=== PATIENT | female | born 1945 | race Caucasian/White ===

== ENCOUNTER 2016-06-29 11:23 | Inpatient (IN) | payer OTHER, MEDICARE ==
[~2016-06-29] VITALS: Ht 154.9 cm; Wt 78.5 kg
[2016-06-29] VITALS (9 sets, daily range): BP systolic 114–157; BP diastolic 77–89; PULSE 72–124; RESP 18–20; TEMP 98–99.2; O2SAT 89–94
[~2016-06-29 11:23] MED LIST: DULARA
[2016-06-29] MEDS ORDERED: PRED5TAB PO (11:45)
[2016-06-29] MEDS ORDERED: SPIRCAP INH (11:45)
[2016-06-29] MEDS ORDERED: SODIUM CHLORIDE 0.9% FLUSH 5 ML FLUSH IVF PRN (11:45)
[2016-06-29] MEDS ORDERED: VITA500T49 PO (11:45)
[2016-06-29] MEDS ORDERED: RESP: LIDOCAINE HCL 4% PF 5 ML NEB NEB ONE (11:45)
[2016-06-29] MEDS ORDERED: SALM50I INH (11:45)
[2016-06-29] MEDS ORDERED: methylPREDNISolone SOD SUCC 125 MG/2 ML VIAL IVP ONE (11:45)
[2016-06-29] MEDS ORDERED: VITA100064 PO (11:45)
[2016-06-29] MEDS ORDERED: LEVA250T PO (11:45)
[2016-06-29] MEDS ORDERED: VENTAER INH (11:45)
[2016-06-29] MEDS ORDERED: CALCCHW3 CHEW (11:45)
--- NOTE | 2016-06-29 11:49 | PD ---
HPI Chief Complaint: Respiratory Symptoms Time Seen by Provider: 11:36 Travel History International Travel<30 days: No Contact w/Intl Traveler<30days: No Traveled to known affect area: No History of Present Illness HPI The patient is a 70-year-old female who presents to the emergency department for shortness of breath. The patient notes a 5-6 day history of cough and congestion symptoms and of moved down to her lungs. The patient was evaluated by the physician pathology assistant at her primary physician's office, Dr. Parker, earlier this week. The patient was placed on Levaquin 250 mg twice a day and prednisone 5 mg daily. However, the patient's symptoms have continued to progress. The patient does have a history of COPD, last cigarette was 3 days ago. The patient denies any chest pain, nausea, vomiting, diarrhea, or abdominal pain. The patient does not currently have a dental therapist. The patient denies any known history congestive heart failure, pulmonary embolism, or DVT. The patient's symptoms are moderate, progressive over the last several days, and there are no current alleviating factors. The patient is not on home oxygen. PFSH Past Medical History Arthritis: Yes (OA) Asthma: Yes Anxiety: Yes Depression: No Cancer: No Cardiovascular Problems: No COPD: Yes Diminished Hearing: No Endocrine: No Genitourinary: No Immune Disorder: No Musculoskeletal: Yes (osteopenia) Neurologic: No Psychiatric: No Reproductive: No Past Surgical History Abdominal Surgery: Yes (HERNIA REPAIR X 3, cholecystectomy) Appendectomy: Yes Cholecystectomy: Yes Gynecologic Surgery: Yes (HYST) Hysterectomy: Yes Joint Replacement: No Oral Surgery: Yes (tonsillectomy) Tonsillectomy: Yes Other Surgery: Yes Social History Alcohol Use: Yes (RARELY) Tobacco Use: Yes (6 CIG/DAY) Substance Use: No Allergies-Medications (Allergen,Severity, Reaction): Coded Allergies: No Known Allergies (Verified , 08/12/15) Reported Meds & Prescriptions Reported Meds & Active Scripts Active Reported Prednisone 5 Mg Tab 5 Mg PO DAILY Levaquin (Levofloxacin) 250 Mg Tab 250 Mg PO BID Vitamin B12 (Cyanocobalamin) 500 Mcg Tab 500 Mcg PO DAILY Vitamin D (Cholecalciferol) 1,000 Unit Tab 1,000 Units PO DAILY Calci-Chew (Calcium Carbonate) 1,250 Mg Chew 1,250 Mg CHEW 1,250 mg calcium carbonate (500 mg elemental calcium) Ventolin Hfa 18 GM Inh (Albuterol Sulfate) 90 Mcg/Act Aer 2 Puff INH Q4-6H PRN Spiriva Handihaler (Tiotropium Inh) 18 Mcg Cap 18 Mcg INH DAILY 1 capsule = 18 mcg Serevent Diskus Inh (Salmeterol Xinafoate) 50 Mcg/Act Aero 50 Mcg INH HS [Dulara] Review of Systems Except as stated in HPI: all other systems reviewed are Neg General / Constitutional: No: Fever Cardiovascular: No: Chest Pain or Discomfort Respiratory: Positive: Cough, Shortness of Breath, Wheezing Gastrointestinal: No: Nausea, Vomiting, Diarrhea, Abdominal Pain Musculoskeletal: No: Myalgias Physical Exam Narrative GENERAL: Awake, alert, pleasant 70-year-old female who appears her stated age and is in mild respiratory distress. SKIN: Warm and dry. HEAD: Atraumatic. Normocephalic. EYES: No injection or drainage. ENT: No nasal bleeding or discharge. Mucous membranes pink and moist. NECK: Trachea midline. No JVD. CARDIOVASCULAR: Regular, tachycardic with a heart rate of 105. RESPIRATORY: Mild tachypnea with a respiratory rate of 22. Diminished breath sounds throughout with prolonged expiratory phase and tight wheeze. GASTROINTESTINAL: Abdomen soft, non-tender, nondistended. No rebound tenderness. MUSCULOSKELETAL: No obvious deformities. No clubbing. No cyanosis. No edema. Calves are soft bilaterally. NEUROLOGICAL: Awake and alert. No obvious cranial nerve deficits. Motor grossly within normal limits. Normal speech. PSYCHIATRIC: Appropriate mood and affect; insight and judgment normal. Data Data Last Documented VS Vital Signs Date Time Temp Pulse Resp B/P Pulse Ox O2 Delivery O2 Flow Rate FiO2 06/29/16 12:05 94 Nasal Cannula 2.00 06/29/16 11:49 20 06/29/16 11:46 99.2 72 152/81 Orders Complete Blood Count With Diff (06/29/16 11:44) Comprehensive Metabolic Panel (06/29/16 11:44) B-Type Natriuretic Peptide (06/29/16 11:44) Magnesium (Mg) (06/29/16 11:44) Ckmb (Isoenzyme) Profile (06/29/16 11:44) Troponin I (06/29/16 11:44) Iv Access Insert/Monitor (06/29/16 11:44) Electrocardiogram (06/29/16 11:44) Ecg Monitoring (06/29/16 11:44) Oximetry (06/29/16 11:44) Oxygen Administration (06/29/16 11:44) Chest, Single Ap (06/29/16 11:44) Sodium Chloride 0.9% Flush (Ns Flush) (06/29/16 11:45) Methylprednisolone So Succ Inj (Solumedr (06/29/16 11:45) Albuterol-Ipratropium Neb (Duoneb Neb) (06/29/16 11:45) Lidocaine Pf 4% Neb (Lidocaine Pf 4% Neb (06/29/16 11:45) Labs Laboratory Tests Test 06/29/16 12:05 White Blood Count 4.4 TH/MM3 Red Blood Count 4.71 MIL/MM3 Hemoglobin 13.9 GM/DL Hematocrit 40.6 % Mean Corpuscular Volume 86.3 FL Mean Corpuscular Hemoglobin 29.5 PG Mean Corpuscular Hemoglobin 34.2 % Concent Red Cell Distribution Width 12.8 % Platelet Count 259 TH/MM3 Mean Platelet Volume 7.2 FL Neutrophils (%) (Auto) 78.8 % Lymphocytes (%) (Auto) 14.8 % Monocytes (%) (Auto) 3.3 % Eosinophils (%) (Auto) 2.2 % Basophils (%) (Auto) 0.9 % Neutrophils # (Auto) 3.5 TH/MM3 Lymphocytes # (Auto) 0.7 TH/MM3 Monocytes # (Auto) 0.1 TH/MM3 Eosinophils # (Auto) 0.1 TH/MM3 Basophils # (Auto) 0.0 TH/MM3 CBC Comment DIFF FINAL Differential Comment Sodium Level 143 MEQ/L Potassium Level 4.3 MEQ/L Chloride Level 109 MEQ/L Carbon Dioxide Level 22.9 MEQ/L Anion Gap 11 MEQ/L Blood Urea Nitrogen 10 MG/DL Creatinine 0.82 MG/DL Estimat Glomerular Filtration 69 ML/MIN Rate Random Glucose 112 MG/DL Calcium Level 9.1 MG/DL Magnesium Level 2.1 MG/DL Total Bilirubin 0.6 MG/DL Aspartate Amino Transf 12 U/L (AST/SGOT) Alanine Aminotransferase 18 U/L (ALT/SGPT) Alkaline Phosphatase 56 U/L Total Creatine Kinase 57 U/L Troponin I LESS THAN 0.02 NG/ML B-Type Natriuretic Peptide 31 PG/ML Total Protein 7.5 GM/DL Albumin 3.8 GM/DL MDM Medical Decision Making Medical Screen Exam Complete: Yes Emergency Medical Condition: Yes Medical Record Reviewed: Yes Interpretation(s) EKG reveals sinus tachycardia with a heart rate of 104. Chest x-ray reveals normal examination. Laboratory Tests Test 06/29/16 12:05 White Blood Count 4.4 TH/MM3 Red Blood Count 4.71 MIL/MM3 Hemoglobin 13.9 GM/DL Hematocrit 40.6 % Mean Corpuscular Volume 86.3 FL Mean Corpuscular Hemoglobin 29.5 PG Mean Corpuscular Hemoglobin 34.2 % Concent Red Cell Distribution Width 12.8 % Platelet Count 259 TH/MM3 Mean Platelet Volume 7.2 FL Neutrophils (%) (Auto) 78.8 % Lymphocytes (%) (Auto) 14.8 % Monocytes (%) (Auto) 3.3 % Eosinophils (%) (Auto) 2.2 % Basophils (%) (Auto) 0.9 % Neutrophils # (Auto) 3.5 TH/MM3 Lymphocytes # (Auto) 0.7 TH/MM3 Monocytes # (Auto) 0.1 TH/MM3 Eosinophils # (Auto) 0.1 TH/MM3 Basophils # (Auto) 0.0 TH/MM3 CBC Comment DIFF FINAL Differential Comment Sodium Level 143 MEQ/L Potassium Level 4.3 MEQ/L Chloride Level 109 MEQ/L Carbon Dioxide Level 22.9 MEQ/L Anion Gap 11 MEQ/L Blood Urea Nitrogen 10 MG/DL Creatinine 0.82 MG/DL Estimat Glomerular Filtration 69 ML/MIN Rate Random Glucose 112 MG/DL Calcium Level 9.1 MG/DL Magnesium Level 2.1 MG/DL Total Bilirubin 0.6 MG/DL Aspartate Amino Transf 12 U/L (AST/SGOT) Alanine Aminotransferase 18 U/L (ALT/SGPT) Alkaline Phosphatase 56 U/L Total Creatine Kinase 57 U/L Troponin I LESS THAN 0.02 NG/ML B-Type Natriuretic Peptide 31 PG/ML Total Protein 7.5 GM/DL Albumin 3.8 GM/DL Differential Diagnosis Differential diagnosis includes COPD exacerbation, bronchitis, pneumonia, pleural effusion, pulmonary embolism, acute coronary syndrome, sepsis. Narrative Course IV was established, labs are drawn and sent, and the patient was placed on cardiac telemetry monitoring and continuous pulse oximetry monitoring. EKG was ordered and interpreted. Chest x-ray was ordered. The patient was administered Solu-Medrol 125 mg intravenously, duo nebs 3 with respiratory lidocaine, and the patient was monitored in the emergency department. Chest x- ray was negative. The patient was administered DuoNeb's and monitored in the emergency department. The patient's lung sounds did improve, however, she still had coarse wheezing throughout. The patient's heart rate maintained a rate approximately 100-115, O2 sat was 92% on 3 L. The patient is not on home oxygen. The patient will require observation/admission to the hospital for COPD exacerbation and hypoxia. The patient will need IV steroids, duo nebs, and pulmonary toilet. The patient has failed outpatient therapy as she was RE placed on prednisone and Levaquin. The patient will be admitted to the hospital. Physician Communication Physician Communication The patient has [employer], her primary [facility] Dr[facility] Parker, [facility] as she has failed outpatient therapy and is hypoxic. Diagnosis Primary Impression: COPD exacerbation Additional Impression: Hypoxia Admitting Information Admitting Physician Requests: Admit Condition: Stable Jean Pierre Brandt MD Jun 29, 2016 11:49
--- NOTE | 2016-06-29 12:01 | RADHPO ---
EXAM DATE/TIME: 06/29/2016 11:52 [place] COMPARISON: No previous studies available for comparison. INDICATIONS : Short of breath, cough, fever MEDICAL HISTORY : Chronic obstructive pulmonary disease. SURGICAL HISTORY : None. ENCOUNTER: Initial ACUITY: 1 week PAIN SCORE: 0/10 LOCATION: Bilateral chest FINDINGS: A single view of the chest demonstrates the lungs to be symmetrically aerated without evidence of mas s, infiltrate or effusion. The cardiomediastinal contours are unremarkable. Osseous structures are intact. CONCLUSION: Normal examination. Oliver Blackman MD on June 29, 2016 at 12:00 Board Certified Radiologist. This report was verified electronically.
[2016-06-29] MEDS: RESP: ALBUTEROL 2.5 MG/IPRATROPIUM 0.5 MG NEB (SCH) INH ×3 (12:04→12:22)
[2016-06-29 12:18] LABS: AUTOMATED NEUTROPHIL # 3.5 TH/MM3 (1.8-7.7); BASOPHIL % 0.9 % (0.0-2.0); EOSINOPHIL # 0.1 TH/MM3 (0-0.4); EOSINOPHIL % 2.2 % (0.0-4.0); HEMATOCRIT 40.6 % (35.0-46.0); LYMPH % 14.8 % (9.0-44.0); LYMPHOCYTE # 0.7 TH/MM3 (1.0-4.8); MEAN CELL VOLUME 86.3 FL (80.0-100.0); MEAN CORPUSCULAR HEMOGLOBIN 29.5 PG (27.0-34.0); MEAN CORPUSCULAR HGB CONC 34.2 % (32.0-36.0); MONO % 3.3 % (0.0-8.0); NEUT % 78.8 % (16.0-70.0); PLATELET COUNT 259 TH/MM3 (150-450); RED BLOOD COUNT 4.71 MIL/MM3 (4.00-5.30); RED CELL DISTRIBUTION WIDTH 12.8 % (11.6-17.2); WHITE BLOOD COUNT 4.4 TH/MM3 (4.0-11.0)
[2016-06-29 12:19] LABS: HEMO FLAGS DIFF FINAL
[2016-06-29 12:26] LABS: CHLORIDE 109 MEQ/L (98-107); POTASSIUM 4.3 MEQ/L (3.5-5.1); SODIUM (NA) 143 MEQ/L (136-145)
[2016-06-29 12:30] LABS: ANION GAP 11 MEQ/L (5-15); BICARBONATE 22.9 MEQ/L (21.0-32.0); BLOOD UREA NITROGEN 10 MG/DL (7-18); MAGNESIUM 2.1 MG/DL (1.5-2.5)
[2016-06-29 12:33] LABS: ALT (GPT) 18 U/L (10-53); AST (GOT) 12 U/L (15-37); GLOMERULAR FILTRATION RATE 69 ML/MIN (>89)
[2016-06-29 12:34] LABS: TOTAL BILIRUBIN ADULT 0.6 MG/DL (0.2-1.0)
[2016-06-29 12:36] LABS: ALKALINE PHOSPHATASE 56 U/L (45-117)
[2016-06-29 12:43] LABS: CREATINE KINASE 57 U/L (26-192)
--- NOTE | 2016-06-29 13:40 | HHI.HP ---
cc: zaheer [facility] Service [facility] Primary Care Physician Kirk Parker MD Admission Diagnosis COPD exacerbation, hypoxia, failed outpatient therapy Diagnoses: Chief Complaint: Short of breath Travel History International Travel<30 Days: No Contact w/Intl Traveler <30 Da: No Traveled to Known Affected Are: No History of Present Illness Patient is a 70-year-old female with a known history of bronchitis area 6 days ago she had increased cough and congestion and respiratory distress. She saw her primary doctor and was given Levaquin and prednisone for several days without much improvement. She came to the hospital today. She was hypoxemic and tachycardic. The patient has not had any fevers but admits her appetite for tobacco has gone down because she couldn't take good breaths. She does not use home oxygen. Patient was given bronchodilators and steroids and noted that there has been some improvement in her respiratory status. For these reasons the patient has been admitted to the hospital Review of Systems Constitutional: COMPLAINS OF: Fatigue, DENIES: Diaphoretic episodes, Fever, Weight gain, Weight loss, Chills, Dizziness, Change in appetite, Night Sweats Endocrine: DENIES: Abnorml menstrual pattern, Heat/cold intolerance, Polydipsia , Polyuria, Polyphagia Eyes: DENIES: Blurred vision, Diplopia, Eye inflammation, Eye pain, Vision loss , Photosensitivity, Double Vision Ears, nose, mouth, throat: DENIES: Tinnitus, Hearing loss, Vertigo, Nasal discharge, Oral lesions, Throat pain, Hoarseness, Ear Pain, Running Nose, Epistaxis, Sinus Pain, Toothache, Odynophagia Respiratory: COMPLAINS OF: Shortness of breath, DENIES: Apneas, Cough, Snoring , Wheezing, Hemoptysis, Sputum production Cardiovascular: COMPLAINS OF: Dyspnea on Exertion, DENIES: Chest pain, Palpitations, Syncope, PND, Lower Extremity Edema, Orthopnea, Claudication Gastrointestinal: DENIES: Abdominal pain, Black stools, Bloody stools, Constipation, Diarrhea, Nausea, Vomiting, Difficulty Swallowing, Anorexia Genitourinary: DENIES: Abnormal vaginal bleeding, Dysmenorrhea, Dyspareunia, Sexual dysfunction, Urinary frequency, Urinary incontinence, Urgency, Hematuria , Dysuria, Nocturia, Vaginal discharge Musculoskeletal: DENIES: Joint pain, Muscle aches, Stiffness, Joint Swelling, Back pain, Neck pain Integumentary: DENIES: Abnormal pigmentation, Pruritus, Rash, Nail changes, Breast masses, Breast skin changes, Nipple discharge Hematologic/lymphatic: DENIES: Bruising, Lymphadenopathy Immunologic/allergic: DENIES: Eczema, Urticaria Neurologic: DENIES: Abnormal gait, Headache, Localized weakness, Paresthesias, Seizures, Speech Problems, Tremor, Poor Balance Psychiatric: DENIES: Anxiety, Confusion, Mood changes, Depression, Hallucinations, Agitation, Suicidal Ideation, Homicidal Ideation, Delusions Past Family Social History Past Medical History COPD/bronchitis Past Surgical History Hysterectomy Hernia repair Cholecystectomy Appendectomy Tonsillectomy Reported Medications Reviewed in the medical record, recent prednisone and Levaquin per outpatient primary Allergies: Coded Allergies: No Known Allergies (Verified , 08/12/15) Active Ordered Medications Reviewed in the medical record Family History Mother had COPD and was on oxygen after smoking for several decades Social History Tobacco half a pack a day, occasional alcohol, lives independently Physical Exam Vital Signs Vital Signs Date Time Temp Pulse Resp B/P Pulse Ox O2 Delivery O2 Flow Rate FiO2 06/29/16 13:02 114 20 139/77 93 Nasal Cannula 3 06/29/16 12:05 94 Nasal Cannula 2.00 06/29/16 11:49 94 Nasal Cannula 3 06/29/16 11:49 20 94 Nasal Cannula 3 06/29/16 11:49 20 94 Nasal Cannula 3 06/29/16 11:46 99.2 72 20 152/81 89 Physical Exam GENERAL: This is a well-nourished, well-developed patient, in no apparent distress. SKIN: No rashes, ecchymoses or lesions. Cool and dry. HEAD: Atraumatic. Normocephalic. No temporal or scalp tenderness. EYES: Pupils equal round and reactive. Extraocular motions intact. No scleral icterus. No injection or drainage. ENT: Nose without bleeding, purulent drainage or septal hematoma. Throat without erythema, tonsillar hypertrophy or exudate. Uvula midline. Airway patent. NECK: Trachea midline. No JVD or lymphadenopathy. Supple, nontender, no meningeal signs. CARDIOVASCULAR: Sinus tachycardia without murmurs, gallops, or rubs. RESPIRATORY: Decreased air flow, scattered wheezes no appreciable rhonchi GASTROINTESTINAL: Abdomen soft, non-tender, nondistended. No hepato-splenomegaly , or palpable masses. No guarding. MUSCULOSKELETAL: Extremities without clubbing, cyanosis, or edema. No joint tenderness, effusion, or edema noted. No calf tenderness. Negative Homans sign bilaterally. NEUROLOGICAL: Awake and alert. Cranial nerves II through XII intact. Motor and sensory grossly within normal limits. Five out of 5 muscle strength in all muscle groups. Normal speech. Laboratory Laboratory Tests Test 06/29/16 12:05 White Blood Count 4.4 Red Blood Count 4.71 Hemoglobin 13.9 Hematocrit 40.6 Mean Corpuscular Volume 86.3 Mean Corpuscular Hemoglobin 29.5 Mean Corpuscular Hemoglobin 34.2 Concent Red Cell Distribution Width 12.8 Platelet Count 259 Mean Platelet Volume 7.2 Neutrophils (%) (Auto) 78.8 Lymphocytes (%) (Auto) 14.8 Monocytes (%) (Auto) 3.3 Eosinophils (%) (Auto) 2.2 Basophils (%) (Auto) 0.9 Neutrophils # (Auto) 3.5 Lymphocytes # (Auto) 0.7 Monocytes # (Auto) 0.1 Eosinophils # (Auto) 0.1 Basophils # (Auto) 0.0 CBC Comment DIFF FINAL Differential Comment Sodium Level 143 Potassium Level 4.3 Chloride Level 109 Carbon Dioxide Level 22.9 Anion Gap 11 Blood Urea Nitrogen 10 Creatinine 0.82 Estimat Glomerular Filtration 69 Rate Random Glucose 112 Calcium Level 9.1 Magnesium Level 2.1 Total Bilirubin 0.6 Aspartate Amino Transf 12 (AST/SGOT) Alanine Aminotransferase 18 (ALT/SGPT) Alkaline Phosphatase 56 Total Creatine Kinase 57 Troponin I LESS THAN 0.02 B-Type Natriuretic Peptide 31 Total Protein 7.5 Albumin 3.8 Result Diagram: 06/29/16 1205 06/29/16 1205 Assessment and Plan Problem List: (1) COPD exacerbation ICD Code: J44.1 Status: Acute Plan: we'll continue with bronchodilators, antibiotics, IV steroids. Cont spiriva, Patient education to be provided. We'll check oxygenation periodically Chest x-ray reviewed by me does show increased AP diameter without any evidence of acute cardiopulmonary disease EKG was done and interpreted by me and is sinus tachycardia Assessment and Plan Plan of care to be determined by Hospital course Code Status Full code Discussed Condition With Patient, NAABELA IsaiErmias Rikki, daughter Physician Certification 2 Midnight Certification Type: Admission for Inpatient Services Order for Inpatient Services The services are ordered in accordance with Medicare regulations or non- Medicare payer requirements, as applicable. In the case of services not specified as inpatient-only, they are appropriately provided as inpatient services in accordance with the 2-midnight benchmark. Estimated LOS (days): 3 3 days is the estimated time the patient will need to remain in the hospital, assuming treatment plan goals are met and no additional complications. Post-Hospital Plan: Alicia Hernandez MD Jun 29, 2016 13:40
[2016-06-29] MEDS ORDERED: LEVOFLOXACIN 750 MG PREMIX INJ 150 ML IV SCH (15:00)
[2016-06-29] MEDS: RESP: IPRATROPIUM 0.5 MG/2.5 ML NEB INH SCH ×2 (15:31→20:21)
[2016-06-29] MEDS: methylPREDNISolone SOD SUCC 40 MG/1 ML VIAL IV PUSH SCH (21:43)
[2016-06-29] MEDS: SODIUM CHLORIDE 0.9% FLUSH 5 ML FLUSH IVF SCH (21:43)
[2016-06-30] VITALS (7 sets, daily range): BP systolic 109–136; BP diastolic 77–82; PULSE 72–117; RESP 18–20; TEMP 97.3–98.2; O2SAT 91–94
[2016-06-30] MEDS: methylPREDNISolone SOD SUCC 40 MG/1 ML VIAL IV PUSH SCH ×3 (03:43→21:28)
[2016-06-30] MEDS: RESP: ALBUTEROL 2.5 MG/3 ML NEB (PRN) INH (05:44)
[2016-06-30] MEDS: RESP: IPRATROPIUM 0.5 MG/2.5 ML NEB INH SCH ×4 (08:15→20:07)
[2016-06-30] MEDS: TIOTROPIUM BROMIDE 18 MCG INH INH SCH (09:34)
[2016-06-30] MEDS: SODIUM CHLORIDE 0.9% FLUSH 5 ML FLUSH IVF SCH ×2 (09:35→21:28)
--- NOTE | 2016-06-30 10:53 | HHI.PR ---
Subjective Remarks Patient seen in follow-up for tachycardia and for COPD exacerbation. Patient doing a little bit better. Tachycardia somewhat improved. She is somewhat short of breath at rest. No new events overnight. Discussed with [facility] team Objective Vitals Vital Signs Date Time Temp Pulse Resp B/P Pulse Ox O2 Delivery O2 Flow Rate FiO2 06/30/16 08:15 92 Nasal Cannula 2.00 06/30/16 08:00 98.2 112 20 117/79 91 06/30/16 04:00 97.6 72 20 136/79 94 06/30/16 00:00 97.8 117 20 109/82 93 06/29/16 20:21 93 Nasal Cannula 2.00 06/29/16 20:00 116 06/29/16 20:00 98.0 123 18 114/86 91 06/29/16 18:42 118 06/29/16 17:05 124 20 157/89 94 Nasal Cannula 3 06/29/16 14:01 120 20 146/87 93 Nasal Cannula 3 06/29/16 13:02 114 20 139/77 93 Nasal Cannula 3 06/29/16 12:05 94 Nasal Cannula 2.00 06/29/16 11:49 94 Nasal Cannula 3 06/29/16 11:49 20 94 Nasal Cannula 3 06/29/16 11:49 20 94 Nasal Cannula 3 06/29/16 11:46 99.2 72 20 152/81 89 I/O 06/29/16 06/29/16 06/29/16 06/30/16 06/30/16 06/30/16 07:00 15:00 23:00 07:00 15:00 23:00 Intake Total 500 ml 150 ml 420 ml Balance 500 ml 150 ml 420 ml Intake Oral 500 ml 420 ml IV Total 150 ml # Voids 1 2 # Bowel Movements 0 Result Diagram: 06/29/16 1205 06/29/16 1205 Imaging Last Impressions Chest X-Ray 06/29/16 1144 Signed Impressions: Service Date/Time: Wednesday, June 29, 2016 11:52 - CONCLUSION: Normal examination. Oliver Blackman MD Objective Remarks GENERAL: This is a well-nourished, well-developed patient, in no apparent distress. CARDIOVASCULAR: Regular rate and rhythm without murmurs, gallops, or rubs. RESPIRATORY: Decreased air flow with scattered fine wheezes GASTROINTESTINAL: Abdomen soft, non-tender, nondistended. Normal active bowel sounds MUSCULOSKELETAL: Extremities without clubbing, cyanosis, or edema. NEURO: Alert & Oriented x4 to person, place, time, situation. Moves all ext x4 A/P Problem List: (1) COPD exacerbation ICD Code: J44.1 Status: Acute Plan: we'll continue with bronchodilators, antibiotics, IV steroids. Cont spiriva, Patient education to be provided. We'll check oxygenation periodically Patient admonished to discontinue tobacco Discharge Planning Home when stable Alicia Mitchell MD Jun 30, 2016 10:53
[2016-06-30] MEDS: ENOXAPARIN SODIUM 40 MG/0.4 ML SYRINGE SQ SCH (12:03)
[2016-06-30] MEDS ORDERED: ACETAMINOPHEN 325 MG TAB PO PRN (19:00)
--- NOTE | 2016-06-30 19:43 | EKG ---
Date Performed: 06/29/2016 Time Performed: 11:51:04 PTAGE: 70 years EKG: Sinus tachycardia Normal ECG except for rate PREVIOUS TRACING : 09/08/2011 18.09 DOCTOR: Simon Jamil Interpretating Date/Time 06/30/2016 19:37:11
[2016-06-30] MEDS ORDERED: SODIUM CHLORIDE 0.65% NASAL DRP/SPRY 30 ML BTL PRN (21:00)
[2016-06-30] MEDS ORDERED: guaiFENesin SOLUTION 200 MG/10 ML CUP PO ONE (21:45)
[2016-07-01] VITALS (7 sets, daily range): BP systolic 111–143; BP diastolic 73–91; PULSE 92–108; RESP 16–24; TEMP 95.9–97.6; O2SAT 91–96
[2016-07-01] MEDS: methylPREDNISolone SOD SUCC 40 MG/1 ML VIAL IV PUSH SCH ×3 (04:14→21:53)
[2016-07-01] MEDS: RESP: ALBUTEROL 2.5 MG/3 ML NEB (PRN) INH ×2 (04:28→17:06)
[2016-07-01] MEDS: RESP: IPRATROPIUM 0.5 MG/2.5 ML NEB INH SCH ×4 (07:25→19:09)
[2016-07-01] MEDS: TIOTROPIUM BROMIDE 18 MCG INH INH SCH (08:34)
[2016-07-01] MEDS: SODIUM CHLORIDE 0.9% FLUSH 5 ML FLUSH IVF SCH ×2 (08:34→21:55)
--- NOTE | 2016-07-01 11:12 | HHI.PR ---
Subjective Remarks Patient seen and evaluated today in follow-up for COPD. No new complaints today. Restaurant status is improved. Wheezes are better Objective Vitals Vital Signs Date Time Temp Pulse Resp B/P Pulse Ox O2 Delivery O2 Flow Rate FiO2 07/01/16 08:32 95.9 92 18 111/75 96 07/01/16 07:26 95 Nasal Cannula 2.00 07/01/16 00:00 97.0 95 18 132/77 93 06/30/16 20:07 93 Nasal Cannula 2.00 06/30/16 20:00 97.7 101 18 116/80 94 06/30/16 12:00 97.3 103 20 113/77 92 I/O 06/30/16 06/30/16 06/30/16 07/01/16 07/01/16 07/01/16 07:00 15:00 23:00 07:00 15:00 23:00 Intake Total 420 ml 640 ml Balance 420 ml 640 ml Intake Oral 420 ml 640 ml # Voids 2 2 1 # Bowel Movements 0 0 Result Diagram: 06/29/16 1205 06/29/16 1205 Objective Remarks GENERAL: This is a well-nourished, well-developed patient, in no apparent distress. CARDIOVASCULAR: Regular rate and rhythm without murmurs, gallops, or rubs. RESPIRATORY: Improved airflow, wheezes or clearing with deep inspiration GASTROINTESTINAL: Abdomen soft, non-tender, nondistended. Normal active bowel sounds MUSCULOSKELETAL: Extremities without clubbing, cyanosis, or edema. NEURO: Alert & Oriented x4 to person, place, time, situation. Moves all ext x4 A/P Problem List: (1) COPD exacerbation ICD Code: J44.1 Status: Acute Plan: we'll continue with bronchodilators, antibiotics, IV steroids. Cont spiriva, Patient education provided. We'll check oxygenation periodically Patient admonished to discontinue tobacco Discharge Planning Home when stable Alicia Mitchell MD Jul 01, 2016 11:12
[2016-07-01] MEDS: ENOXAPARIN SODIUM 40 MG/0.4 ML SYRINGE SQ SCH (12:07)
[2016-07-01] MEDS: LEVOFLOXACIN 750 MG PREMIX INJ 150 ML IV SCH (16:40)
[2016-07-02] VITALS (9 sets, daily range): BP systolic 120–154; BP diastolic 71–99; PULSE 85–102; RESP 16–20; TEMP 96.8–97.6; O2SAT 92–98
[2016-07-02] MEDS: RESP: ALBUTEROL 2.5 MG/3 ML NEB (PRN) INH (04:38)
[2016-07-02] MEDS: methylPREDNISolone SOD SUCC 40 MG/1 ML VIAL IV PUSH SCH ×3 (05:06→17:59)
[2016-07-02] MEDS: RESP: IPRATROPIUM 0.5 MG/2.5 ML NEB INH SCH ×2 (07:17→10:56)
[2016-07-02] MEDS: TIOTROPIUM BROMIDE 18 MCG INH INH SCH (09:03)
[2016-07-02] MEDS: SODIUM CHLORIDE 0.9% FLUSH 5 ML FLUSH IVF SCH ×2 (09:03→20:22)
[2016-07-02] MEDS: ENOXAPARIN SODIUM 40 MG/0.4 ML SYRINGE SQ SCH (09:03)
--- NOTE | 2016-07-02 14:09 | HHI.PR ---
Subjective Remarks Patient seen and examined today with Dr. Pascual. Patient states that she is actually worse today. Her chest feels tighter than yesterday. Today's first day that she has been actually able to expectorate any phlegm. Objective Vitals Vital Signs Date Time Temp Pulse Resp B/P Pulse Ox O2 Delivery O2 Flow Rate FiO2 07/02/16 10:48 3.00 07/02/16 09:05 97.0 98 18 120/71 98 07/02/16 07:19 93 Nasal Cannula 2.00 07/02/16 00:00 96.8 85 20 122/86 95 07/01/16 20:00 96.6 108 24 112/87 95 07/01/16 19:10 94 Nasal Cannula 2.00 07/01/16 16:30 97.6 101 16 143/91 91 I/O 07/01/16 07/01/16 07/01/16 07/02/16 07/02/16 07/02/16 07:00 15:00 23:00 07:00 15:00 23:00 Intake Total 960 ml 480 ml Balance 960 ml 480 ml Intake Oral 960 ml 480 ml # Voids 1 3 1 # Bowel Movements 0 0 Result Diagram: 06/29/16 1205 06/29/16 1205 Objective Remarks GENERAL: Well-developed, well-nourished, in no acute distress. alert and orientated HEENT: Head is normocephalic without any lesions or masses noted. Facial features are symmetric. Eyes: Extraocular muscles are intact. Conjunctivae were clear. NECK: Supple without any masses. Trachea midline no deviation. No JVD, CARDIAC: Regular rhythm, regular rate. S1/S2 are heard. No murmurs gallops or rubs. LUNGS: Patient moving minimal air, expiratory wheeze noted bilaterally. no rhonchi or rales. No use of accessory muscles on inspiration or expiration. ABDOMEN: Soft, nontender. Nondistended. Bowel sounds heard in all 4 quadrants. No organomegaly or masses. Negative rebound, negative guarding EXTREMITIES: No edema, pulses are equal bilaterally. No cyanosis or clubbing NEUROLOGY: Mood and affect appear appropriate. Cranial nerves II through XII grossly intact. Moving all extremities, speech is clear Urinary Catheter: No Vascular Central Line Catheter: No A/P Assessment and Plan Chronic obstructive pulmonary disease exacerbation Continue Levaquin Increase to Solu-Medrol 60 mg every 6 hours Continue duo nebs every 4 hours and every 2 hours as needed Continue O2 supplementation maintain O2 sats greater than 92% Start Robitussin-AC every 4 hours as needed for cough EZPAP with nebulizer treatments Awaiting sputum culture DVT prevention Subcutaneous Lovenox Written by Hiren Ca PA-C, acting as scribe for Dr. Pascual on 07/02/16 at 1510. The documentation accurately reflects the work and decisions performed face-to- face by Dr. Pascual on 07/02/16 at 1510. Hiren Ca Jul 02, 2016 14:09
[2016-07-02] MEDS: DOCUSATE SODIUM 50 MG/SENNA 8.6 MG TAB PO SCH ×2 (14:28→20:21)
[2016-07-02] MEDS: POLYETHYLENE GLYCOL 17 GM PKG PO PRN (14:29)
[2016-07-02] MEDS: RESP: ALBUTEROL 2.5 MG/IPRATROPIUM 0.5 MG NEB (PRN) NEB (14:39)
[2016-07-02] MEDS: RESP: ALBUTEROL 2.5 MG/IPRATROPIUM 0.5 MG NEB (SCH) NEB ×2 (17:10→20:23)
[2016-07-02] MEDS: guaiFENesin/CODEINE SYRUP 200 MG/20 MG/10 ML CUP PO PRN (20:22)
[2016-07-03] VITALS (7 sets, daily range): BP systolic 129–135; BP diastolic 81–87; PULSE 85–107; RESP 17–18; TEMP 97–98.1; O2SAT 94–96
[2016-07-03] MEDS: methylPREDNISolone SOD SUCC 40 MG/1 ML VIAL IV PUSH SCH ×5 (00:17→23:43)
[2016-07-03] MEDS: RESP: ALBUTEROL 2.5 MG/IPRATROPIUM 0.5 MG NEB (PRN) NEB ×2 (05:26→17:51)
[2016-07-03] MEDS: RESP: ALBUTEROL 2.5 MG/IPRATROPIUM 0.5 MG NEB (SCH) NEB ×4 (07:47→21:53)
[2016-07-03] MEDS: TIOTROPIUM BROMIDE 18 MCG INH INH SCH (08:41)
[2016-07-03] MEDS: DOCUSATE SODIUM 50 MG/SENNA 8.6 MG TAB PO SCH ×2 (08:43→21:01)
[2016-07-03] MEDS: SODIUM CHLORIDE 0.9% FLUSH 5 ML FLUSH IVF SCH ×2 (08:43→21:03)
[2016-07-03] MEDS: ENOXAPARIN SODIUM 40 MG/0.4 ML SYRINGE SQ SCH (08:43)
[2016-07-03] MEDS ORDERED: OXYGENTANK NAS.CANULA (12:57)
--- NOTE | 2016-07-03 12:59 | HHI.PR ---
Subjective Remarks Patient seen and examined today with Dr. Pascual. Patient states that she feels that she is turning the corner. She states her breathing is better. She is able take full breaths at this time. Objective Vitals Vital Signs Date Time Temp Pulse Resp B/P Pulse Ox O2 Delivery O2 Flow Rate FiO2 07/03/16 12:00 97.2 100 18 129/81 94 07/03/16 08:00 97.0 85 17 134/87 96 07/03/16 07:49 96 Nasal Cannula 3.00 07/03/16 00:00 97.7 97 18 129/83 96 07/02/16 20:23 94 Nasal Cannula 3.00 07/02/16 20:00 97.2 102 18 141/99 94 07/02/16 17:30 96.8 92 16 154/98 96 07/02/16 17:11 95 Nasal Cannula 3.00 07/02/16 14:41 94 Nasal Cannula 3.00 07/02/16 13:00 97.6 102 20 146/95 92 I/O 07/02/16 07/02/16 07/02/16 07/03/16 07/03/16 07/03/16 07:00 15:00 23:00 07:00 15:00 23:00 Intake Total 480 ml 100 ml 280 ml Balance 480 ml 100 ml 280 ml Intake Oral 480 ml 280 ml IV Total 100 ml # Voids 1 5 # Bowel Movements 0 Result Diagram: 06/29/16 1205 06/29/16 1205 Objective Remarks GENERAL: Well-developed, well-nourished, in no acute distress. alert and orientated HEENT: Head is normocephalic without any lesions or masses noted. Facial features are symmetric. Eyes: Extraocular muscles are intact. Conjunctivae were clear. NECK: Supple without any masses. Trachea midline no deviation. No JVD, CARDIAC: Regular rhythm, regular rate. S1/S2 are heard. No murmurs gallops or rubs. LUNGS: Patient with improved air movement. Able to eat deeper breaths without coughing., expiratory wheeze noted bilaterally. no rhonchi or rales. No use of accessory muscles on inspiration or expiration. ABDOMEN: Soft, nontender. Nondistended. Bowel sounds heard in all 4 quadrants. No organomegaly or masses. Negative rebound, negative guarding EXTREMITIES: No edema, pulses are equal bilaterally. No cyanosis or clubbing NEUROLOGY: Mood and affect appear appropriate. Cranial nerves II through XII grossly intact. Moving all extremities, speech is clear Urinary Catheter: No Vascular Central Line Catheter: No A/P Assessment and Plan Chronic obstructive pulmonary disease exacerbation Continue Levaquin Continue Solu-Medrol 60 mg every 6 hours Continue duo nebs every 4 hours and every 2 hours as needed Continue O2 supplementation maintain O2 sats greater than 92% Continue Robitussin-AC every 4 hours as needed for cough Acapella Sputum culture heavy growth normal respiratory darlin DVT prevention Subcutaneous Lovenox Written by Hiren Ca PA-C, acting as scribe for Dr. Pascual on 07/03/16 at 1750. The documentation accurately reflects the work and decisions performed face-to- face by Dr. Pascual on 07/03/16 at 1750. Hiren Ca Jul 03, 2016 12:59
[2016-07-03] MEDS: LEVOFLOXACIN 750 MG PREMIX INJ 150 ML IV SCH (15:58)
[2016-07-04] VITALS (8 sets, daily range): BP systolic 115–149; BP diastolic 76–98; PULSE 20–109; RESP 18–22; TEMP 96.2–97.6; O2SAT 92–98
[2016-07-04] MEDS: methylPREDNISolone SOD SUCC 40 MG/1 ML VIAL IV PUSH SCH ×3 (05:18→16:17)
[2016-07-04] MEDS: RESP: ALBUTEROL 2.5 MG/IPRATROPIUM 0.5 MG NEB (PRN) NEB (05:22)
[2016-07-04] MEDS: RESP: ALBUTEROL 2.5 MG/IPRATROPIUM 0.5 MG NEB (SCH) NEB ×4 (08:22→19:41)
[2016-07-04] MEDS: DOCUSATE SODIUM 50 MG/SENNA 8.6 MG TAB PO SCH ×2 (08:43→20:16)
[2016-07-04] MEDS: SODIUM CHLORIDE 0.9% FLUSH 5 ML FLUSH IVF SCH ×2 (08:44→20:17)
[2016-07-04] MEDS: TIOTROPIUM BROMIDE 18 MCG INH INH SCH (08:44)
--- NOTE | 2016-07-04 11:58 | HHI.PR ---
Subjective Remarks Patient seen and examined today. Patient states that she gets very winded this morning she started to get shower without her oxygen. Objective Vitals Vital Signs Date Time Temp Pulse Resp B/P Pulse Ox O2 Delivery O2 Flow Rate FiO2 07/04/16 08:22 92 Nasal Cannula 3.00 07/04/16 08:00 97.0 103 22 147/98 93 07/04/16 04:00 97.1 90 18 118/81 96 07/04/16 00:00 96.2 98 18 115/76 98 07/03/16 21:53 94 Nasal Cannula 3.00 07/03/16 20:00 98.1 107 18 135/86 95 07/03/16 16:00 98.0 100 18 131/81 94 07/03/16 12:00 97.2 100 18 129/81 94 I/O 07/03/16 07/03/16 07/03/16 07/04/16 07/04/16 07/04/16 07:00 15:00 23:00 07:00 15:00 23:00 Intake Total 280 ml Balance 280 ml Intake Oral 280 ml # Bowel Movements 1 Objective Remarks GENERAL: Well-developed, well-nourished, in no acute distress. alert and orientated HEENT: Head is normocephalic without any lesions or masses noted. Facial features are symmetric. Eyes: Extraocular muscles are intact. Conjunctivae were clear. NECK: Supple without any masses. Trachea midline no deviation. No JVD, CARDIAC: Regular rhythm, regular rate. S1/S2 are heard. No murmurs gallops or rubs. LUNGS: Patient with improved air movement. Able to eat deeper breaths without coughing., expiratory wheeze noted bilaterally. no rhonchi or rales. No use of accessory muscles on inspiration or expiration. ABDOMEN: Soft, nontender. Nondistended. Bowel sounds heard in all 4 quadrants. No organomegaly or masses. Negative rebound, negative guarding EXTREMITIES: No edema, pulses are equal bilaterally. No cyanosis or clubbing NEUROLOGY: Mood and affect appear appropriate. Cranial nerves II through XII grossly intact. Moving all extremities, speech is clear Urinary Catheter: No Vascular Central Line Catheter: No A/P Assessment and Plan Chronic obstructive pulmonary disease exacerbation Continue Levaquin Continue Solu-Medrol 60 mg every 6 hours Continue duo nebs every 4 hours and every 2 hours as needed Continue O2 supplementation maintain O2 sats greater than 92% Continue Robitussin-AC every 4 hours as needed for cough Continue incentive spirometry and Acapella Sputum culture heavy growth normal respiratory darlin start Mucinex 600 mg twice daily DVT prevention Subcutaneous Lovenox Written by Hiren Ca PA-C, acting as scribe for Dr. Pascual on 07/04/16 at 1150. The documentation accurately reflects the work and decisions performed face-to- face by Dr. Pascual on 07/04/16 at 1150. Hiren Ca Jul 04, 2016 11:58
[2016-07-04] MEDS: ENOXAPARIN SODIUM 40 MG/0.4 ML SYRINGE SQ SCH (12:29)
[2016-07-04] MEDS: guaiFENesin E.R. 600 MG TAB PO SCH ×2 (12:36→20:16)
[2016-07-04] MEDS: ALPRAZolam 0.25 MG TAB PO PRN (16:17)
[2016-07-05] VITALS (8 sets, daily range): BP systolic 121–150; BP diastolic 78–89; PULSE 80–108; RESP 18–24; TEMP 95.9–98.7; O2SAT 92–99
[2016-07-05] MEDS: methylPREDNISolone SOD SUCC 40 MG/1 ML VIAL IV PUSH SCH ×4 (00:42→16:45)
[2016-07-05] MEDS: ALPRAZolam 0.25 MG TAB PO PRN ×2 (00:43→16:47)
[2016-07-05] MEDS: RESP: ALBUTEROL 2.5 MG/IPRATROPIUM 0.5 MG NEB (PRN) NEB (05:57)
[2016-07-05] MEDS: RESP: ALBUTEROL 2.5 MG/IPRATROPIUM 0.5 MG NEB (SCH) NEB ×4 (07:49→21:18)
--- NOTE | 2016-07-05 09:02 | HHI.PR ---
Subjective Remarks Patient seen and examined today with Dr. Pascual. Patient states that she feels improved. When she did her morning bathroom routine, she did with oxygen without any shortness of breath or dyspnea. She is down to 2 L nasal cannula. Objective Vitals Vital Signs Date Time Temp Pulse Resp B/P Pulse Ox O2 Delivery O2 Flow Rate FiO2 07/05/16 08:00 96.8 89 22 121/78 96 07/05/16 07:49 99 Nasal Cannula 3.00 07/05/16 04:00 95.9 80 18 125/79 98 07/05/16 00:00 96.4 90 18 123/80 96 07/04/16 20:00 97.0 100 18 125/83 96 07/04/16 19:41 96 Nasal Cannula 3.00 07/04/16 16:00 97.6 20 20 142/93 94 07/04/16 12:00 97.2 109 20 149/88 95 I/O 07/04/16 07/04/16 07/04/16 07/05/16 07/05/16 07/05/16 07:00 15:00 23:00 07:00 15:00 23:00 Intake Total 800 ml 240 ml Balance 800 ml 240 ml Intake Oral 800 ml 240 ml # Voids 4 2 # Bowel Movements 1 0 Objective Remarks GENERAL: Well-developed, well-nourished, in no acute distress. alert and orientated HEENT: Head is normocephalic without any lesions or masses noted. Facial features are symmetric. Eyes: Extraocular muscles are intact. Conjunctivae were clear. NECK: Supple without any masses. Trachea midline no deviation. No JVD, CARDIAC: Regular rhythm, regular rate. S1/S2 are heard. No murmurs gallops or rubs. LUNGS: Still with diminished air movement. Able to eat deeper breaths without coughing., expiratory wheeze noted bilaterally. no rhonchi or rales. No use of accessory muscles on inspiration or expiration. ABDOMEN: Soft, nontender. Nondistended. Bowel sounds heard in all 4 quadrants. No organomegaly or masses. Negative rebound, negative guarding EXTREMITIES: No edema, pulses are equal bilaterally. No cyanosis or clubbing NEUROLOGY: Mood and affect appear appropriate. Cranial nerves II through XII grossly intact. Moving all extremities, speech is clear Urinary Catheter: No Vascular Central Line Catheter: No A/P Assessment and Plan Chronic obstructive pulmonary disease exacerbation Continue Levaquin Continue Solu-Medrol 60 mg every 6 hours Continue duo nebs every 4 hours and every 2 hours as needed Continue O2 supplementation maintain O2 sats greater than 92% Continue Robitussin-AC every 4 hours as needed for cough Continue incentive spirometry and Acapella. Counseled patient to use every hour Sputum culture heavy growth normal respiratory darlin Continue Mucinex 600 mg twice daily DVT prevention Subcutaneous Lovenox Written by Hiren Ca PA-C, acting as scribe for Dr. Pascual on 07/05/16 at 1300. The documentation accurately reflects the work and decisions performed face-to- face by Dr. Pascual on 07/05/16 at 1300. Discharge Planning Discharge planning 2448 hours with home health care and home oxygen Hiren Ca Jul 05, 2016 09:02
--- NOTE | 2016-07-05 09:03 | HHI.FF ---
Face to Face Verification Diagnosis: (1) COPD exacerbation (2) Hypoxia Physical Therapy Order: Evaluate and Treat, Improve ambulation, Strength and gait training Home Health Nursing Order: Medical education Signs/symptoms of disease process Oxygen administration education Nursing assessment with vital signs I have seen patient Vera Fleming on 07/05/16. My clinical findings support the need for the requested home health care services because: Patient has SOB Deconditioned w/ increased weakness I certify that my clinical findings support that this patient is homebound because: Hx COPD- exertion dyspnea/weakness Hiren Ca Jul 05, 2016 09:02
[2016-07-05] MEDS: guaiFENesin E.R. 600 MG TAB PO SCH ×2 (09:27→21:13)
[2016-07-05] MEDS: DOCUSATE SODIUM 50 MG/SENNA 8.6 MG TAB PO SCH ×2 (09:27→21:13)
[2016-07-05] MEDS: SODIUM CHLORIDE 0.9% FLUSH 5 ML FLUSH IVF SCH ×2 (09:34→21:13)
[2016-07-05] MEDS: TIOTROPIUM BROMIDE 18 MCG INH INH SCH (09:34)
[2016-07-05] MEDS: ENOXAPARIN SODIUM 40 MG/0.4 ML SYRINGE SQ SCH (12:10)
[2016-07-05] MEDS: LEVOFLOXACIN 750 MG PREMIX INJ 150 ML IV SCH (16:44)
[2016-07-05] MEDS: POLYETHYLENE GLYCOL 17 GM PKG PO PRN (21:13)
[2016-07-06] VITALS (8 sets, daily range): BP systolic 117–154; BP diastolic 77–95; PULSE 90–108; RESP 18–24; TEMP 96–98.2; O2SAT 92–97
[2016-07-06] MEDS: ALPRAZolam 0.25 MG TAB PO PRN ×2 (01:09→20:12)
[2016-07-06] MEDS: methylPREDNISolone SOD SUCC 40 MG/1 ML VIAL IV PUSH SCH ×4 (01:09→18:22)
[2016-07-06] MEDS: RESP: ALBUTEROL 2.5 MG/IPRATROPIUM 0.5 MG NEB (PRN) NEB ×2 (01:20→05:07)
[2016-07-06] MEDS: RESP: ALBUTEROL 2.5 MG/IPRATROPIUM 0.5 MG NEB (SCH) NEB ×4 (07:30→20:06)
[2016-07-06] MEDS: TIOTROPIUM BROMIDE 18 MCG INH INH SCH (08:46)
[2016-07-06] MEDS: DOCUSATE SODIUM 50 MG/SENNA 8.6 MG TAB PO SCH ×2 (08:46→20:12)
[2016-07-06] MEDS: guaiFENesin E.R. 600 MG TAB PO SCH ×2 (08:46→20:12)
[2016-07-06] MEDS: SODIUM CHLORIDE 0.9% FLUSH 5 ML FLUSH IVF SCH ×2 (08:46→20:12)
--- NOTE | 2016-07-06 10:39 | HHI.PR ---
Subjective Remarks Patient seen and examined today with Dr. Pascual. Patient states that she is improving slowly on a daily basis. She is a little reluctant to do her morning ritual because she is scared to be short of breath. I discussed with her day go ahead and proceed with her normal ritual with her oxygen on. Let us know how she did in that she feels comfortable enough to BLE to go home and do this on her own or she feels that she needs to stay in the hospital. Objective Vitals Vital Signs Date Time Temp Pulse Resp B/P Pulse Ox O2 Delivery O2 Flow Rate FiO2 07/06/16 08:00 97.3 102 22 120/78 96 07/06/16 07:31 95 Nasal Cannula 2.00 07/06/16 04:00 97.0 90 20 117/77 97 07/06/16 00:00 96.0 96 22 154/95 96 07/05/16 21:20 92 Nasal Cannula 2.00 07/05/16 20:00 98.7 104 20 150/87 93 07/05/16 16:00 98.0 108 24 144/89 93 07/05/16 12:00 97.5 105 22 133/85 92 I/O 07/05/16 07/05/16 07/05/16 07/06/16 07/06/16 07/06/16 07:00 15:00 23:00 07:00 15:00 23:00 Intake Total 240 ml Balance 240 ml Intake Oral 240 ml # Voids 2 2 2 # Bowel Movements 0 0 Objective Remarks GENERAL: Well-developed, well-nourished, in no acute distress. alert and orientated HEENT: Head is normocephalic without any lesions or masses noted. Facial features are symmetric. Eyes: Extraocular muscles are intact. Conjunctivae were clear. NECK: Supple without any masses. Trachea midline no deviation. No JVD, CARDIAC: Regular rhythm, regular rate. S1/S2 are heard. No murmurs gallops or rubs. LUNGS: Air movement improving. Able to breathe deeper breaths without coughing. , Mild expiratory wheeze noted bilaterally. no rhonchi or rales. No use of accessory muscles on inspiration or expiration. ABDOMEN: Soft, nontender. Nondistended. Bowel sounds heard in all 4 quadrants. No organomegaly or masses. Negative rebound, negative guarding EXTREMITIES: No edema, pulses are equal bilaterally. No cyanosis or clubbing NEUROLOGY: Mood and affect appear appropriate. Cranial nerves II through XII grossly intact. Moving all extremities, speech is clear Urinary Catheter: No Vascular Central Line Catheter: No A/P Assessment and Plan Chronic obstructive pulmonary disease exacerbation Continue Levaquin Continue Solu-Medrol 60 mg every 6 hours Continue duo nebs every 4 hours and every 2 hours as needed Continue O2 supplementation maintain O2 sats greater than 92% Continue Robitussin-AC every 4 hours as needed for cough Continue incentive spirometry and Acapella. Counseled patient to use every hour Sputum culture heavy growth normal respiratory darlin Continue Mucinex 600 mg twice daily DVT prevention Subcutaneous Lovenox Written by Hiren Ca PA-C, acting as scribe for Dr. Pascual on 07/06/16 at 1215. The documentation accurately reflects the work and decisions performed face-to- face by Dr. Pascual on 07/06/16 at 1215 Discharge Planning Discharge planning when clinically stable with home health care and home oxygen Hiren Ca Jul 06, 2016 10:38
[2016-07-06] MEDS: ENOXAPARIN SODIUM 40 MG/0.4 ML SYRINGE SQ SCH (12:12)
[2016-07-07] VITALS (8 sets, daily range): BP systolic 125–163; BP diastolic 73–104; PULSE 82–115; RESP 16–22; TEMP 96–100.2; O2SAT 91–96
[2016-07-07] MEDS: methylPREDNISolone SOD SUCC 40 MG/1 ML VIAL IV PUSH SCH ×4 (00:28→17:30)
[2016-07-07] MEDS: RESP: ALBUTEROL 2.5 MG/IPRATROPIUM 0.5 MG NEB (PRN) NEB (06:02)
[2016-07-07] MEDS: RESP: ALBUTEROL 2.5 MG/IPRATROPIUM 0.5 MG NEB (SCH) NEB ×4 (07:24→19:51)
[2016-07-07] MEDS: TIOTROPIUM BROMIDE 18 MCG INH INH SCH (09:43)
[2016-07-07] MEDS: SODIUM CHLORIDE 0.9% FLUSH 5 ML FLUSH IVF SCH ×2 (09:43→21:55)
[2016-07-07] MEDS: DOCUSATE SODIUM 50 MG/SENNA 8.6 MG TAB PO SCH ×2 (09:43→21:55)
[2016-07-07] MEDS: guaiFENesin E.R. 600 MG TAB PO SCH ×2 (09:43→21:55)
[2016-07-07] MEDS: ENOXAPARIN SODIUM 40 MG/0.4 ML SYRINGE SQ SCH (11:31)
--- NOTE | 2016-07-07 14:20 | HHI.PR ---
Subjective Remarks Patient seen and examined today with Dr. Pascual. Patient states that she is actually about 25% worse today. Patient still gets short of breath rather easily. Objective Vitals Vital Signs Date Time Temp Pulse Resp B/P Pulse Ox O2 Delivery O2 Flow Rate FiO2 07/07/16 08:00 97.2 102 18 142/88 93 07/07/16 07:27 91 Nasal Cannula 2.00 07/07/16 04:00 96.5 82 18 127/73 94 07/07/16 00:00 97.0 95 16 125/83 96 07/06/16 20:05 92 Nasal Cannula 2.00 07/06/16 20:00 97.0 99 18 138/93 92 07/06/16 20:00 92 Nasal Cannula 2.00 Humidified 07/06/16 16:00 98.1 108 24 138/85 92 I/O 07/06/16 07/06/16 07/06/16 07/07/16 07/07/16 07/07/16 07:00 15:00 23:00 07:00 15:00 23:00 Intake Total 750 ml 420 ml 200 ml Balance 750 ml 420 ml 200 ml Intake Oral 750 ml 420 ml 200 ml # Voids 2 4 2 1 # Bowel Movements 0 1 0 0 Objective Remarks GENERAL: Well-developed, well-nourished, in no acute distress. alert and orientated HEENT: Head is normocephalic without any lesions or masses noted. Facial features are symmetric. Eyes: Extraocular muscles are intact. Conjunctivae were clear. NECK: Supple without any masses. Trachea midline no deviation. No JVD, CARDIAC: Regular rhythm, regular rate. S1/S2 are heard. No murmurs gallops or rubs. LUNGS: Air movement improving. Able to breathe deeper breaths without coughing. , Mild expiratory wheeze noted bilaterally. no rhonchi or rales. No use of accessory muscles on inspiration or expiration. ABDOMEN: Soft, nontender. Nondistended. Bowel sounds heard in all 4 quadrants. No organomegaly or masses. Negative rebound, negative guarding EXTREMITIES: No edema, pulses are equal bilaterally. No cyanosis or clubbing NEUROLOGY: Mood and affect appear appropriate. Cranial nerves II through XII grossly intact. Moving all extremities, speech is clear Urinary Catheter: No Vascular Central Line Catheter: No A/P Assessment and Plan Chronic obstructive pulmonary disease exacerbation Continue Levaquin Continue Solu-Medrol 60 mg every 6 hours Continue duo nebs every 4 hours and every 2 hours as needed Continue O2 supplementation maintain O2 sats greater than 92% Continue Robitussin-AC every 4 hours as needed for cough Continue incentive spirometry and Acapella. Counseled patient to use every hour Sputum culture heavy growth normal respiratory darlin Continue Mucinex 600 mg twice daily DVT prevention Subcutaneous Lovenox Written by Hiren Ca PA-C, acting as scribe for Dr. Pascual on 07/07/16 at 1320. The documentation accurately reflects the work and decisions performed face-to- face by Dr. Pascual on 07/07/16 at 1320 Discharge Planning Discharge planning when clinically stable with home health care and home oxygen Hiren Ca Jul 07, 2016 14:20
[2016-07-07] MEDS: LEVOFLOXACIN 750 MG PREMIX INJ 150 ML IV SCH (14:58)
[2016-07-07] MEDS: SODIUM CHLORIDE 0.9% FLUSH 5 ML FLUSH IVF PRN ×2 (14:59→17:31)
[2016-07-07] MEDS: ALPRAZolam 0.25 MG TAB PO PRN (17:29)
[2016-07-07] MEDS: RESP: ACETYLCYSTEINE 20% 30 ML NEB NEB SCH (19:51)
[2016-07-08] VITALS (8 sets, daily range): BP systolic 120–140; BP diastolic 70–84; PULSE 60–102; RESP 18–20; TEMP 78.4–97.9; O2SAT 92–97
[2016-07-08] MEDS: methylPREDNISolone SOD SUCC 40 MG/1 ML VIAL IV PUSH SCH ×5 (00:18→23:27)
[2016-07-08] MEDS: RESP: ACETYLCYSTEINE 20% 30 ML NEB NEB SCH ×6 (04:33→19:54)
[2016-07-08] MEDS: RESP: ALBUTEROL 2.5 MG/IPRATROPIUM 0.5 MG NEB (PRN) NEB (04:33)
[2016-07-08] MEDS: ALPRAZolam 0.25 MG TAB PO PRN ×3 (04:46→20:44)
[2016-07-08] MEDS: RESP: ALBUTEROL 2.5 MG/IPRATROPIUM 0.5 MG NEB (SCH) NEB ×4 (07:41→19:54)
[2016-07-08] MEDS: DOCUSATE SODIUM 50 MG/SENNA 8.6 MG TAB PO SCH ×2 (08:08→20:44)
[2016-07-08] MEDS: guaiFENesin E.R. 600 MG TAB PO SCH ×2 (08:08→20:44)
[2016-07-08] MEDS: TIOTROPIUM BROMIDE 18 MCG INH INH SCH (08:09)
[2016-07-08] MEDS: SODIUM CHLORIDE 0.9% FLUSH 5 ML FLUSH IVF SCH ×2 (08:10→20:44)
[2016-07-08] MEDS: guaiFENesin/CODEINE SYRUP 200 MG/20 MG/10 ML CUP PO PRN (11:37)
[2016-07-08] MEDS: ENOXAPARIN SODIUM 40 MG/0.4 ML SYRINGE SQ SCH (11:37)
--- NOTE | 2016-07-08 12:21 | HHI.PR ---
Subjective Remarks Feeling better today - ambulation increased with PT. Less dyspneic with exertion. Objective Vitals Vital Signs Date Time Temp Pulse Resp B/P Pulse Ox O2 Delivery O2 Flow Rate FiO2 07/08/16 08:00 96.8 100 20 140/80 96 07/08/16 07:45 92 Nasal Cannula 2.00 07/08/16 04:00 78.4 90 20 138/84 97 07/08/16 00:00 97.9 102 20 120/70 95 Automatic Cuff 07/07/16 20:00 96.0 115 20 163/104 94 07/07/16 19:52 94 Nasal Cannula 2.00 07/07/16 19:30 94 Nasal Cannula 2.00 07/07/16 16:00 100.2 I/O 07/07/16 07/07/16 07/07/16 07/08/16 07/08/16 07/08/16 07:00 15:00 23:00 07:00 15:00 23:00 Intake Total 200 ml 660 ml 480 ml Balance 200 ml 660 ml 480 ml Intake Oral 200 ml 660 ml 480 ml # Voids 1 4 1 # Bowel Movements 0 0 0 Objective Remarks GENERAL: Well-nourished, well-developed elderly CF patient. SKIN: Warm and dry. HEAD: Normocephalic. EYES: No scleral icterus. No injection or drainage. NECK: Supple, trachea midline. No JVD or lymphadenopathy. CARDIOVASCULAR: Regular rate and rhythm without murmurs, gallops, or rubs. RESPIRATORY: Breath sounds equal bilaterally. Prolonged exp phase with scant end exp wheeze, improving airflow. No accessory muscle use. GASTROINTESTINAL: Abdomen soft, non-tender, nondistended. EXTREMITIES: No cyanosis, or edema. NEUROLOGICAL: Awake, alert, and oriented x 3. Non-focal. A/P Problem List: (1) COPD exacerbation ICD Code: J44.1 Status: Acute (2) Acute hypoxemic respiratory failure ICD Code: J96.01 Status: Acute (3) Hypoxia ICD Code: R09.02 Status: Acute Assessment and Plan Chronic obstructive pulmonary disease exacerbation - slow to respond, but appears to be turning the corner Continue Levaquin Continue Solu-Medrol 60 mg every 6 hours - wean to prednisone Continue duo nebs every 4 hours and every 2 hours as needed Continue O2 supplementation maintain O2 sats greater than 92% Continue Robitussin-AC every 4 hours as needed for cough Continue incentive spirometry and Acapella. Counseled patient to use every hour Sputum culture heavy growth normal respiratory darlin Continue Mucinex 600 mg twice daily -Home O2 has been arranged -recommend outpatient establish with pulmologist DVT prevention Subcutaneous Lovenox Ladonna Pascual MD Jul 08, 2016 12:21
[2016-07-08] MEDS: SODIUM CHLORIDE 0.9% FLUSH 5 ML FLUSH IVF PRN ×2 (12:31→17:30)
[2016-07-09] VITALS: BP 117/81; PULSE 86; RESP 18; TEMP 95.6; O2SAT 93
[2016-07-09] MEDS: RESP: ACETYLCYSTEINE 20% 30 ML NEB NEB SCH ×5 (03:43→15:39)
[2016-07-09] MEDS: RESP: ALBUTEROL 2.5 MG/IPRATROPIUM 0.5 MG NEB (PRN) NEB (03:44)
[2016-07-09] MEDS: methylPREDNISolone SOD SUCC 40 MG/1 ML VIAL IV PUSH SCH (05:37)
[2016-07-09] MEDS: ALPRAZolam 0.25 MG TAB PO PRN ×2 (05:43→16:12)
[2016-07-09] MEDS: RESP: ALBUTEROL 2.5 MG/IPRATROPIUM 0.5 MG NEB (SCH) NEB ×3 (08:19→15:39)
[2016-07-09 08:22] VITALS: BP 102/61; PULSE 82; RESP 18; TEMP 97; O2SAT 96; O2SAT 97
[2016-07-09] MEDS: guaiFENesin E.R. 600 MG TAB PO SCH (08:43)
[2016-07-09] MEDS: DOCUSATE SODIUM 50 MG/SENNA 8.6 MG TAB PO SCH (08:43)
[2016-07-09] MEDS: TIOTROPIUM BROMIDE 18 MCG INH INH SCH (08:43)
[2016-07-09] MEDS: SODIUM CHLORIDE 0.9% FLUSH 5 ML FLUSH IVF SCH (08:46)
[2016-07-09] MEDS: ENOXAPARIN SODIUM 40 MG/0.4 ML SYRINGE SQ SCH (12:59)
[2016-07-09] MEDS ORDERED: predniSONE 20 MG TAB PO SCH (13:00)
[2016-07-09] MEDS ORDERED: ALPR.25 PO (13:05)
[2016-07-09] MEDS ORDERED: MUCI600T PO (13:05)
[2016-07-09] MEDS ORDERED: IPRASOL NEB (13:05)
--- NOTE | 2016-07-09 13:08 | HHI.DS ---
Discharge Summary Admission Date Jun 29, 2016 at 12:59 Discharge Date: Jul 09, 2016 Admitting Diagnosis COPD exacerbation, hypoxia, failed outpatient therapy (1) COPD exacerbation ICD Code: J44.1 (2) Acute hypoxemic respiratory failure ICD Code: J96.01 (3) Bronchospasm with bronchitis, acute ICD Code: J20.9 Procedures None Brief History - From Admission Patient is a 70-year-old female with a known history of bronchitis area 6 days ago she had increased cough and congestion and respiratory distress. She saw her primary doctor and was given Levaquin and prednisone for several days without much improvement. She came to the hospital today. She was hypoxemic and tachycardic. The patient has not had any fevers but admits her appetite for tobacco has gone down because she couldn't take good breaths. She does not use home oxygen. Patient was given bronchodilators and steroids and noted that there has been some improvement in her respiratory status. For these reasons the patient has been admitted to the hospital Imaging Last Impressions Chest X-Ray 06/29/16 1144 Signed Impressions: Service Date/Time: Wednesday, June 29, 2016 11:52 - CONCLUSION: Normal examination. Oliver Blackman MD PE at Discharge GENERAL: Well-developed, well-nourished, in no acute distress. alert and orientated HEENT: Head is normocephalic without any lesions or masses noted. Facial features are symmetric. Eyes: Extraocular muscles are intact. Conjunctivae were clear. NECK: Supple without any masses. Trachea midline no deviation. No JVD, CARDIAC: Regular rhythm, regular rate. S1/S2 are heard. No murmurs gallops or rubs. LUNGS: Air movement much improved. Mild expiratory wheeze noted bilaterally. no rhonchi or rales. No use of accessory muscles on inspiration or expiration. ABDOMEN: Soft, nontender. Nondistended. Bowel sounds heard in all 4 quadrants. No organomegaly or masses. Negative rebound, negative guarding EXTREMITIES: No edema, pulses are equal bilaterally. No cyanosis or clubbing NEUROLOGY: Mood and affect appear appropriate. Cranial nerves II through XII grossly intact. Moving all extremities, speech is clear Hospital Course Patient was admitted. This was a severe COPD exacerbation. She rebounded when placed on oral steroids. She was then placed on IV solumedrol again. She has now made steady progress with PT. Patient understandably anxious about going home. The xanax has been been helpful to alleviate her anxiety. Given the severity of this COPD exacerbation, as well as newly requiring O2, I strongly recommended outpatient pulmonology referral to the patient. Home O2 has been arranged. Smoking cessation is encouraged. Pt Condition on Discharge: Stable Discharge Disposition: Disch w/ Home Health Serv Discharge Time: > 30 minutes Discharge Instructions DIET: Follow Instructions for: As Tolerated, No Restrictions Activities you can perform: Regular-No Restrictions Ladonna Pascual MD Jul 09, 2016 13:08
[2016-07-09 13:12] VITALS: BP 131/85; PULSE 114; RESP 18; TEMP 97.4; O2SAT 94
[2016-07-09] MEDS ORDERED: NEBULIZER1 MI1 (13:16)
[2016-07-09] MEDS ORDERED: PRED20 PO (13:17)
[2016-07-09] MEDS: LEVOFLOXACIN 750 MG PREMIX INJ 150 ML IV SCH (15:00)
== END 2016-07-09 17:29 | disposition home health service (06) | DRG 190 ==
LOC: PHED 11:23 → PHEDA 12:59 → PH3A 18:20
PROVIDERS: ADMIT Hospitalist; ATTEND Hospitalist
DX: J44.1 Chronic obstructive pulmonary disease with (acute) exacerbation (principal); J96.01 Acute respiratory failure with hypoxia; J44.0 Chronic obstructive pulmonary disease with (acute) lower respiratory infection; J20.9 Acute bronchitis, unspecified; J45.909 Unspecified asthma, uncomplicated; R00.0 Tachycardia, unspecified; F41.9 Anxiety disorder, unspecified; F17.210 Nicotine dependence, cigarettes, uncomplicated; M85.80 Other specified disorders of bone density and structure, unspecified site; M19.90 Unspecified osteoarthritis, unspecified site
CPT/HCPCS: 71010; 76937; 80053; 82550; 83735; 83880; 84484; 85025; 87070; 87205; 93005; 94150; 94620; 94640; 94664; 94667; 94668; 96374; J1650; J1956; J2920; J2930; J7512; J7608; J7613; J7644

== ENCOUNTER → 2016-09-23 | Outpatient (CLI) | payer OTHER ==
[~2016-09-23] MED LIST changes: +ALPR.25 PO; +CALCCHW3 CHEW; +IPRASOL NEB; +MUCI600T PO; +NEBULIZER1 MI1; +OXYGENTANK NAS.CANULA; +PRED20 PO; +SALM50I INH; +SPIRCAP INH; +VENTAER INH; +VITA100064 PO; +VITA500T49 PO
[2016-09-23 08:20] LABS: BLOOD GAS BASE EXCESS -2.5 mmol/L (-2-2); BLOOD GAS CARBOXYHEMOGLOBIN 1.6 % (0-4); BLOOD GAS HCO3 21 mmol/L (22-26); BLOOD GAS METHEMOGLOBIN 1.1 % (0-2); BLOOD GAS O2 HGB SATURATION 92 % (90-100); BLOOD GAS OXYGEN CONTENT 17.5 Vol % (12.0-20.0); BLOOD GAS PCO2 34 mmHg (38-42); BLOOD GAS PO2 73 mmHg (61-120); BLOOD GAS TOTAL HGB 13.5 G/DL (12.0-16.0); CRITICAL VALUE NO; FIO2 21 %; TEMP CORR TO 98.6
[2016-09-23 08:21] LABS: DRAW SITE RT RADIAL; NUMBER OF ARTERIAL PUNCTURES 1; STAT NO; ULNAR PULSE PRESENT
--- NOTE | 2016-09-26 08:53 | RSPPFT ---
DATE OF PROCEDURE: 09/23/16 COMMENTS: Spirometry with FVC of 2.1 at 88% of predicted, FEV1 of 1.0 at 60%, FEV1/FVC ratio is decreased. Flow is decreased at FEF 25, FEF 50, FEF 75 and FEF 25-75. There is a mild response after acutely inhaled bronchodilator treatment. Lung volumes show residual volume is increased. TLC is increased. Diffusion capacity is normal. Flow volume loop indicates an obstructive pattern. Room air arterial blood gases show pH of 7.4, PCO2 of 34, PO2 of 73 and BiCarb of 21. 6-minute walk test shows mild de-saturation. IMPRESSION: 1. Moderately severe obstructive lung disease. 2. Mild response after bronchodilator treatment. 3. Lung volumes show hyperinflation and air trapping. 4. Normal diffusion capacity. 5. Room air arterial blood gases show normal hypoxia. 6. 6-minute walk test shows mild de-saturation.
== END ==
LOC: HRSP 07:13
PROVIDERS: ATTEND Specialist
DX: J44.9 Chronic obstructive pulmonary disease, unspecified (principal)
CPT/HCPCS: 36600; 82805; 94060; 94620; 94726; 94729

== ENCOUNTER 2018-06-16 19:15 | Inpatient (IN) ==
[2018-06-16] MEDS ORDERED: MethylPREDNISolone Sod Succinate Inj 125 MG/2 ML Vial IV.PUSH ONE (19:42)
--- NOTE | 2018-06-16 19:57 | ED ---
HPI General Chief Complaint: Respiratory Symptoms Stated Complaint: HX COPD cough x 1 wk/worse x am Time Seen by Provider: 06/16/18 19:42 Source: patient and family Mode of arrival: ambulatory Limitations: no limitations History of Present Illness MD Complaint: Reports shortness of breath, cough and "asthma attack"; Denies pain with inspiration and chest pain Onset (ago): week(s) (10 days acutely worse today since this AM started herself on her as needed supplemental oxygen took prednisone 10 mg but only used neb x 1 this am) Context: Reports recent illness (finishing clarithromycin and a Medrol taper for sinusitis started Thursday); Denies occurred during exertion, choking/ aspiration, medication noncompliance, allergen exposure, recent travel, smoke/ fume exposure, anxiety, trauma/injury, elevated blood glucose and CO exposure Severity: similar to previous episodes (has required hospitalzation in the past for copd exacerbation) Consistency/Duration: constant and progressively worsening Relieving factors: nothing Exacerbating factors: exertion and movement Known history of: Reports COPD and asthma; Denies congestive heart failure, diabetes, recurrent pneumonia, aspiration pneumonia, HIV, PE, DVT and IVDU Associated symptoms: Reports cough, wheezing, diaphoresis and other (recent sinusitis); Denies chest pain, pain with inspiration, fever, sputum production, orthopnea, lower extremity pain, polyuria, polydipsia, paresthesias, palpitations, carpopedal spasm, hemoptysis, nausea/vomiting, syncope, abdominal pain, rash, sense of impending doom, chest congestion, dizziness and lightheadedness Treatment prior to arrival: Reports oxygen and bronchodilator (x1 this AM); Denies NIPPV, aspirin, nitroglycerin, diuretics, needle thoracostomy, intubation and CPR Related Data Home oxygen amount: 2 liters Home Medications Medication Instructions Recorded Confirmed albuterol sulfate [Ventolin HFA] 2 puff INHALATION Q4-6H PRN 06/16/18 06/16/18 clarithromycin 250 mg PO BID 06/16/18 06/16/18 fluticasone-vilanterol [Breo 1 inh INHALATION DAILY 06/16/18 06/16/18 Ellipta] prednisone 10 mg PO DAILY 06/16/18 06/16/18 Allergies Allergy/AdvReac Type Severity Reaction Status Date / Time No Known Allergies Allergy Verified 06/16/18 19:22 Review of Systems ROS: all other systems reviewed are negative PMFSH History History Provided By: Patient (COPD tobaccoism) and Medical Record Social History Social History Substance History: No History of Abuse Second Hand Smoke Exposure: No Smoking Status: Former smoker How Often Do You Have a Drink Containing Alcohol: Never Recent Travel in [facility] within the Last 8 Weeks: No Recent Out of Country Travel within the Last 8 Weeks: No Exam Narrative Exam Narrative: GENERAL: Well-nourished, well-developed patient. SKIN: Focused skin assessment warm/dry. HEAD: Normocephalic. EYES: No scleral icterus. No injection or drainage. NECK: Supple, trachea midline. No JVD or lymphadenopathy. CARDIOVASCULAR: Increased regular rate and rhythm without murmurs, gallops, or rubs. RESPIRATORY: Breath sounds equal bilaterally bilaterally diminished with wheezing and rhonchi. No accessory muscle use. GASTROINTESTINAL: Abdomen soft, non-tender, nondistended. MUSCULOSKELETAL: No cyanosis, or edema. No lower extremity or pedal edema. BACK: Nontender without obvious deformity. No CVA tenderness. Course Initial Documented Vital Signs Temperature 98.1 F 06/16/18 19:22 Pulse Rate 110 H 06/16/18 19:22 Respiratory Rate 24 06/16/18 19:22 Blood Pressure 122/82 06/16/18 19:22 Pulse Oximetry 95 06/16/18 19:22 Last Documented Vital Signs Temperature 98.1 F 06/16/18 19:22 Pulse Rate 100 H 06/16/18 20:32 Respiratory Rate 18 06/16/18 20:32 Blood Pressure 112/83 06/16/18 19:50 Pulse Oximetry 95 06/16/18 19:50 Critical Care Time Critical Care Time: Yes Total Critical Care Time: 30 Attestation: Aggregate critical care time was 30 minutes. Time to perform other separately billable procedures was not included in the critical care time. My time did not include minutes spent treating any other patients simultaneously or on activities that did not directly contribute to the patient's treatment. The services I provided to this patient were to treat and/or prevent clinically significant deterioration that could result in: Cardiogenic shock, respiratory arrest, I provided critical care services requiring my management, as noted below: Chart data review, documentation time, medication orders and management, vital sign assessments/reviewing monitor data, ordering and reviewing lab tests, ordering and interpreting/reviewing x-rays and diagnostic studies, care of the patient and discussion of the patient with the admitting physicians. Medical Decision Making MDM Narrative Medical decision making narrative: 72-year-old female with COPD presents with exacerbation placed on site monitor continuous pulse oximetry IV access obtained specimens collected and sent for resulting chest x-ray ordered along with EKG patient administered DuoNeb updraft x3 Solu-Medrol 125 mg. Patient reports symptomatic improvement after DuoNeb updrafts Chest x-ray shows no infiltrate effusion or vascular congestion CBC with automated differential and metabolic panel grossly within normal range Patient's troponin I is elevated at 1.27 with an elevated BNP of 676. Patient' s enzymes and EKG with presentation of shortness of breath consistent with non- ST elevation NC patient administered aspirin and heparin with bolus. Patient denies chest pain reports at times 3/10 back ache over the past week to 10 days. Patient will be admitted to [facility] to the [facility]. Call placed to [facility] MD, Dr Holm will admit to their service and sales representative cash registers, Dr Whyte to [facility]. Medical Screen Exam Complete: Yes Emergency Medical Condition: Yes Differential Diagnosis Differential Diagnosis: Dyspnea, exacerbation COPD, pneumonia, CHF, PE, ACS, NC Medical Records Medical records reviewed: Yes I reviewed the patient's medical records. Lab Data Lab results reviewed: Yes I reviewed the patient's lab results. Result diagrams: 06/16/18 20:30 06/16/18 20:30 Lab Results 06/16/18 06/16/18 06/16/18 Range/Units 20:30 20:30 20:30 CBC w Diff Auto diff final WBC 9.9 (4.0-11.0) th/mm3 RBC 5.22 (4.00-5.30) mil/mm3 Hgb 15.2 (11.6-15.3) gm/dL Hct 45.3 (35.0-46.0) % MCV 86.7 (80.0-100.0) fL MCH 29.2 (27.0-34.0) pg MCHC 33.6 (32.0-36.0) % RDW 12.3 (11.6-17.2) % Plt Count 271 (150-450) th/mm3 MPV 8.1 (7.0-11.0) fL Neut % (Auto) 84.2 H (16.0-70.0) % Lymph % (Auto) 8.8 L (9.0-44.0) % Faulk % (Auto) 5.4 (0.0-8.0) % Eos % (Auto) 0.1 (0.0-4.0) % Baso % (Auto) 1.5 (0.0-2.0) % Neut # (Auto) 8.4 H (1.8-7.7) th/mm3 Lymph # (Auto) 0.9 L (1.0-4.8) th/mm3 Faulk # (Auto) 0.5 (0.0-0.9) th/mm3 Eos # (Auto) 0.0 (0.0-0.4) th/mm3 Baso # (Auto) 0.1 (0.0-0.2) th/mm3 WBC Differential . Differential Comment . PT (9.8-11.6) sec INR Ratio APTT (23.4-31.7) sec Sodium 139 (136-145) meq/L Potassium 4.4 (3.5-5.1) meq/L Chloride 107 (98-107) meq/L Carbon Dioxide 25.5 (21.0-32.0) meq/L Anion Gap 7 (5-15) meq/L BUN 17 (7-18) mg/dL Creatinine 0.76 (0.50-1.00) mg/dL Estimated GFR 74 L (>89) mL/min Random Glucose 106 (74-106) mg/dL Calcium 8.5 (8.5-10.1) mg/dL Total Bilirubin 1.0 (0.2-1.0) mg/dL AST 22 (15-37) U/L ALT 29 (10-53) U/L Alkaline Phosphatase 62 (45-117) U/L Troponin I 1.27 H* (0.02-0.05) ng/mL B-Natriuretic Peptide 676 H (0-100) pg/mL Total Protein 7.2 (6.4-8.2) g/dL Albumin 3.7 (3.4-5.0) g/dL 06/16/18 Range/Units 20:30 CBC w Diff WBC (4.0-11.0) th/mm3 RBC (4.00-5.30) mil/mm3 Hgb (11.6-15.3) gm/dL Hct (35.0-46.0) % MCV (80.0-100.0) fL MCH (27.0-34.0) pg MCHC (32.0-36.0) % RDW (11.6-17.2) % Plt Count (150-450) th/mm3 MPV (7.0-11.0) fL Neut % (Auto) (16.0-70.0) % Lymph % (Auto) (9.0-44.0) % Faulk % (Auto) (0.0-8.0) % Eos % (Auto) (0.0-4.0) % Baso % (Auto) (0.0-2.0) % Neut # (Auto) (1.8-7.7) th/mm3 Lymph # (Auto) (1.0-4.8) th/mm3 Faulk # (Auto) (0.0-0.9) th/mm3 Eos # (Auto) (0.0-0.4) th/mm3 Baso # (Auto) (0.0-0.2) th/mm3 WBC Differential Differential Comment PT 10.7 (9.8-11.6) sec INR 1.1 Ratio APTT 28.2 (23.4-31.7) sec Sodium (136-145) meq/L Potassium (3.5-5.1) meq/L Chloride (98-107) meq/L Carbon Dioxide (21.0-32.0) meq/L Anion Gap (5-15) meq/L BUN (7-18) mg/dL Creatinine (0.50-1.00) mg/dL Estimated GFR (>89) mL/min Random Glucose (74-106) mg/dL Calcium (8.5-10.1) mg/dL Total Bilirubin (0.2-1.0) mg/dL AST (15-37) U/L ALT (10-53) U/L Alkaline Phosphatase (45-117) U/L Troponin I (0.02-0.05) ng/mL B-Natriuretic Peptide (0-100) pg/mL Total Protein (6.4-8.2) g/dL Albumin (3.4-5.0) g/dL Imaging Data Radiologist's impression: Chest X-Ray 06/16/18 19:42 CONCLUSION: 1. Underlying emphysema and mild scarring. 2. No evidence of pneumonia. 3. Bochdalek type hernia noted seen on the prior CT containing omental fat. ECG Data EKG Prior to Arrival: No Attestation: I personally reviewed and interpreted this ECG as follows: (EKG: Normal sinus rhythm rate [address] elevation or injury pattern notch P waves repeat, now nonspecific T wave changes, age indeterminate Q wavw laterally ) Discharge Plan Discharge Disposition Patient Disposition: ED Admit(ED Internal Use Only) Discharge Condition Condition: Stable Discharge Order Discharge Orders: ED Use Only Admit Order (Routine); Ordered 06/16/18 Ordered By: Marilou Lazar Discharge Details Diagnosis: Non-ST elevated myocardial infarction (non-STEMI), Chronic obstructive pulmonary disease with (acute) exacerbation, CHF (congestive heart failure) Physicians Team ED Provider: Marilou Lazar Primary Care Provider: Kirk Parker Rxs /Orders / Referrals /Forms Prescriptions: No Action prednisone 10 mg Tablet 10 mg PO DAILY RF: 0 clarithromycin 250 mg Tablet 250 mg PO BID RF: 0 albuterol sulfate [Ventolin HFA] 90 mcg/actuation Hfa Aerosol Inhaler 2 puff INHALATION Q4-6H PRN (Reason: Shortness Of Breath) RF: 0 fluticasone-vilanterol [Breo Ellipta] 100-25 mcg/dose Blister With Device 1 inh INHALATION DAILY RF: 0 Discharge Interventions Interventions: Vital Signs Last Done: 06/16/18 19:50 Status ED Status: With Doctor
--- NOTE | 2018-06-16 20:10 | XR ---
EXAM DATE: 06/16/2018 8:05 PM EST AGE/SEX: 72 years / Female INDICATIONS: Shortness of breath. No emphysema seen on prior CT. CLINICAL DATA: This is the patient's initial encounter. Patient reports that signs and symptoms have been present for 1 week and indicates a pain score of 0/10. MEDICAL/SURGICAL HISTORY: Chronic obstructive pulmonary disease. None. COMPARISON: POI, CT CHEST W/O CONTRAST, 12/01/2017. . FINDINGS: A single AP view of the chest demonstrates the lungs to be symmetrically aerated without evidence of mass, infiltrate or effusion. Atherosclerotic changes are present in the aorta. Underlying emphysema and mild scarring are again noted. There The cardiomediastinal contours are unremarkable. Osseous st ructures are intact. A Bochdalek type hernia is again noted along the posterior left hemidiaphragm. Was better visualized on CT. CONCLUSION: 1. Underlying emphysema and mild scarring. 2. No evidence of pneumonia. 3. Bochdalek type hernia noted seen on the prior CT containing omental fat. Electronically signed by: Stanford Mcintosh MD Board Certified Radiologist 06/16/2018 8:09 PM EST
[2018-06-16 20:53] LABS: Chloride 107 meq/L (98-107); Potassium 4.4 meq/L (3.5-5.1); Sodium 139 meq/L (136-145)
[2018-06-16 20:56] LABS: Calcium 8.5 mg/dL (8.5-10.1)
[2018-06-16 20:57] LABS: Albumin 3.7 g/dL (3.4-5.0); Anion Gap 7 meq/L (5-15); Blood Urea Nitrogen 17 mg/dL (7-18); Carbon Dioxide 25.5 meq/L (21.0-32.0); Glucose,Random 106 mg/dL (74-106)
[2018-06-16 21:00] LABS: Alanine Aminotransferase 29 U/L (10-53); Aspartate Aminotransferase 22 U/L (15-37); Glomerular Filtration Rate 74 mL/min (>89)
[2018-06-16 21:01] LABS: Total Protein 7.2 g/dL (6.4-8.2)
[2018-06-16 21:03] LABS: Alkaline Phosphatase 62 U/L (45-117)
[2018-06-16 21:09] LABS: Baso # (Auto) 0.1 th/mm3 (0.0-0.2); Baso % (Auto) 1.5 % (0.0-2.0); Eos % (Auto) 0.1 % (0.0-4.0); Hematocrit 45.3 % (35.0-46.0); Hemoglobin 15.2 gm/dL (11.6-15.3); Lymph # (Auto) 0.9 th/mm3 (1.0-4.8); Lymph % (Auto) 8.8 % (9.0-44.0); Mean Corpuscular HGB Conc 33.6 % (32.0-36.0); Mean Corpuscular Hemoglobin 29.2 pg (27.0-34.0); Mean Corpuscular Volume 86.7 fL (80.0-100.0); Mean Platelet Volume 8.1 fL (7.0-11.0); Mono # (Auto) 0.5 th/mm3 (0.0-0.9); Mono % (Auto) 5.4 % (0.0-8.0); Neut # (Auto) 8.4 th/mm3 (1.8-7.7); Neut % (Auto) 84.2 % (16.0-70.0); Platelet Count 271 th/mm3 (150-450); Red Blood Count 5.22 mil/mm3 (4.00-5.30); Red Cell Distribution Width 12.3 % (11.6-17.2); White Blood Count 9.9 th/mm3 (4.0-11.0)
[2018-06-16 21:15] LABS: Troponin I 1.27 ng/mL (0.02-0.05)
[2018-06-16] MEDS ORDERED: Heparin Drip 25,000 UNIT/250 ML BAG IV.CONT PRN (21:30)
[2018-06-16] MEDS ORDERED: Heparin 10,000 UNITS/10 ML Vial (for IV use) IV.PUSH STA (21:30)
[2018-06-16 21:51] LABS: Activated Partial Thrombo Time 28.2 sec (23.4-31.7); INR 1.1 Ratio; Prothrombin Time 10.7 sec (9.8-11.6)
[2018-06-17 03:33] LABS: Baso % (Auto) 0.4 % (0.0-2.0); Eos % (Auto) 0.1 % (0.0-4.0); Hematocrit 45.4 % (35.0-46.0); Hemoglobin 15.2 gm/dL (11.6-15.3); Lymph # (Auto) 1.9 th/mm3 (1.0-4.8); Lymph % (Auto) 17.7 % (9.0-44.0); Mean Corpuscular HGB Conc 33.4 % (32.0-36.0); Mean Corpuscular Hemoglobin 29.7 pg (27.0-34.0); Mean Platelet Volume 7.5 fL (7.0-11.0); Mono # (Auto) 0.8 th/mm3 (0.0-0.9); Mono % (Auto) 7.7 % (0.0-8.0); Neut # (Auto) 7.9 th/mm3 (1.8-7.7); Neut % (Auto) 74.1 % (16.0-70.0); Platelet Count 287 th/mm3 (150-450); Red Blood Count 5.11 mil/mm3 (4.00-5.30); Red Cell Distribution Width 13.1 % (11.6-17.2); White Blood Count 10.7 th/mm3 (4.0-11.0)
--- NOTE | 2018-06-17 03:48 | P.HPIM ---
History of Present Illness Service: [facility] Primary Care Physician: Kirk Parker MD Chief Complaint: sob History of Present Illness: 72-year-old female with a history of COPD presented to the ED with complaints of increasing shortness of breath. Patient states she has been on antibiotics and steroids for the last 5 days because she thought she was having a COPD exacerbation but she continued to have increasing shortness of breath and associated dizziness and chest pressure. She denies any radiating chest pain, nausea, vomiting, diaphoresis, fever, chills or dysuria. Inpatient Certification Inpatient Certification: I certify that the inpatient services were ordered in accordance with Medicare regulations governing the order. This includes certification that hospital inpatient services are reasonable and necessary and in the case of services not specified as inpatient-only under 42 CFR 419.22(n), that they are appropriately provided as inpatient services in accordance to with the 2-midnight benchmark under 43 CFR 412.3(e) Estimated Total Length of Stay (Days): 3 Plans for Post Hospital Care: Home Review of Systems Review of Systems: all other systems reviewed are negative [facility] Medical History Medical History Family history non-contributory (Acute) History of COPD (Acute) History of asthma (Acute) History of high cholesterol (Acute) Surgical History Surgical History H/O: hysterectomy (Acute) History of appendectomy (Acute) History of cholecystectomy (Acute) Family History Family History Other Family history non-contributory Social History Social History Substance History: No History of Abuse Second Hand Smoke Exposure: No Smoking Status: Former smoker How Often Do You Have a Drink Containing Alcohol: Never Recent Travel in [place] within the Last 8 Weeks: No Recent Out of Country Travel within the Last 8 Weeks: No Immunization History Tetanus Immunization: Unsure Hx Influenza Vaccine This Season: Yes Medications and Allergies Allergies Allergy/AdvReac Type Severity Reaction Status Date / Time No Known Allergies Allergy Verified 06/16/18 19:22 Home Medications Medication Instructions Recorded Confirmed Type albuterol sulfate [Ventolin HFA] 2 puff INHALATION Q4-6H PRN 06/16/18 06/16/18 History clarithromycin 250 mg PO BID 06/16/18 06/16/18 History fluticasone-vilanterol [Breo 1 inh INHALATION DAILY 06/16/18 06/16/18 History Ellipta] prednisone 10 mg PO DAILY 06/16/18 06/16/18 History Active Medications: Active Medications Heparin Sodium/Dextrose (Heparin/D5w 25,000 U/250 Ml) 25,000 unit in 250 mls @ 0 mls/hr IV.CONT TITRATE PRN; Protocol PRN Reason: Per Protocol Last Admin: 06/16/18 22:13 Dose: 900 units/hr, 9 mls/hr Ondansetron HCl (Zofran Inj) 4 mg IV.PUSH Q6H PRN PRN Reason: NAUSEA OR VOMITING Sodium Chloride (Ns Flush) 2 ml IV.FLUSH BID PERI Sodium Chloride (Ns Flush) 2 ml IV.FLUSH PRN PRN PRN Reason: FLUSH AFTER USING IV ACCESS Last Admin: 06/16/18 23:45 Dose: 2 ml Physical Exam Vital signs: Last Vital Signs Temp 98 F 06/17/18 00:30 Pulse 92 H 06/17/18 03:00 Resp 22 06/17/18 00:30 BP 117/73 06/17/18 00:30 Pulse Ox 93 L 06/17/18 00:53 Intake & Output 06/14/18 06/15/18 06/16/18 06/17/18 06:59 06:59 06:59 06:59 Weight 72 kg Narrative: GENERAL: Well-nourished patient on oxygen, and tachypneic SKIN: Warm and dry. HEAD: Normocephalic. EYES: No scleral icterus. No injection or drainage. NECK: Supple, trachea midline. No JVD or lymphadenopathy. CARDIOVASCULAR: Regular rate and rhythm without murmurs, gallops, or rubs. RESPIRATORY: Diminished base sounds with accessory muscle use, 2 L nasal cannula , no wheezes or crackles noted GASTROINTESTINAL: Abdomen soft, non-tender, nondistended. MUSCULOSKELETAL: No cyanosis, or edema. Results Labs CBC & Chem 7: 06/17/18 03:24 06/16/18 20:30 Imaging Impressions Chest X-Ray 06/16/18 19:42 CONCLUSION: 1. Underlying emphysema and mild scarring. 2. No evidence of pneumonia. 3. Bochdalek type hernia noted seen on the prior CT containing omental fat. Caprini VTE Risk Assessment Caprini VTE Risk Assessment: Moderate/High Risk (score >= 2) Caprini Risk Assessment Model: Point Value = 1 Point Value = 2 Point Value = 3 Point Value = 5 Age 41-60 Minor surgery BMI > 25 kg/m2 Swollen legs Varicose veins or History of unexplained or recurrent spontaneous Oral contraceptives or hormone replacement Sepsis (< 1 month) Serious lung disease, including pneumonia (< 1 month) Abnormal pulmonary function Acute myocardial infarction Congestive heart failure (< 1 month) History of inflammatory bowel disease Medical patient at bed rest Age 61-74 Arthroscopic surgery Major open surgery (> 45 min) Laparoscopic surgery (> 45 min) Malignancy Confined to bed (> 72 hours) Immobilizing plaster cast Central venous access Age >= 75 History of VTE Family history of VTE Factor V Leiden Prothrombin [id number] Lupus anticoagulant Anticardiolipin antibodies Elevated serum homocysteine Heparin-induced thrombocytopenia Other congenital or acquired thrombophilia Stroke (< 1 month) Elective arthroplasty Hip, pelvis, or leg fracture Acute spinal cord injury (< 1 month) Prophylaxis Regimen: Total Risk Factor Score Risk Level Prophylaxis Regimen 0-1 Low Early ambulation 2 Moderate Order ONE of the following: *Sequential Compression Device (SCD) *Heparin 5000 units SQ BID 3-4 Higher Order ONE of the following medications: *Heparin 5000 units SQ TID *Enoxaparin/Lovenox 40 mg SQ daily (WT < 150 kg, CrCl > 30 mL/min) *Enoxaparin/Lovenox 30 mg SQ daily (WT < 150 kg, CrCl > 10-29 mL/min) *Enoxaparin/Lovenox 30 mg SQ BID (WT < 150 kg, CrCl > 30 mL/min) AND/OR *Sequential Compression Device (SCD) 5 or more Highest Order ONE of the following medications: *Heparin 5000 units SQ TID (Preferred with Epidurals) *Enoxaparin/Lovenox 40 mg SQ daily (WT < 150 kg, CrCl > 30 mL/min) *Enoxaparin/Lovenox 30 mg SQ daily (WT < 150 kg, CrCl > 10-29 mL/min) *Enoxaparin/Lovenox 30 mg SQ BID (WT < 150 kg, CrCl > 30 mL/min) AND *Sequential Compression Device (SCD) Assessment and Plan Plan 72-year-old female with a history of COPD presented to the ED with complaints of increasing shortness of breath. NSTEMI -Troponin 1.2, EKG reviewed and shows no ST elevation -Consult cardiology for evaluation -Heparin drip -N.p.o. -Serial troponin and EKGs New onset CHF, BNP 676 -2D echo ordered -Lasix x1 given in the ER COPD, chronic -Duo nebs as needed DVT prophylaxis: Heparin H&P: Quality VTE Deep Vein Thrombosis/Pulmonary Embolism Present on Admission: No
[2018-06-17] MEDS ORDERED: Acetaminophen 325 MG Tablet PO PRN (03:53)
[2018-06-17 03:55] LABS: Calcium 8.3 mg/dL (8.5-10.1); Carbon Dioxide 26.2 meq/L (21.0-32.0); Potassium 4.1 meq/L (3.5-5.1)
[2018-06-17 04:13] LABS: Platelet Estimate Normal (Normal); Platelet Morphology Normal (Normal); RBC Morphology Normal (Normal)
[2018-06-17] MEDS ORDERED: Metoprolol Tartrate 25 MG Tablet PO SCH (09:30)
[2018-06-17] MEDS ORDERED: Heparin/NS PF Inj 500 ML ONE (09:53)
[2018-06-17] MEDS ORDERED: fentaNYL Citrate Inj 100 MCG/2 ML Ampul ONE (09:54)
[2018-06-17] MEDS ORDERED: Heparin 10,000 UNITS/10 ML Vial (for IV use) ONE (09:54)
--- NOTE | 2018-06-17 10:26 | ECHRPT ---
Indication: heart failure CONCLUSIONS Normal left ventricular size. Wall thickness is measured at the upper limits of normal. The left ventricular systolic function is severely reduced with an estimated ejection fraction in th e range of 25-30%. There is regional mid to apical anteroseptal, anterior, and anterolateral hypokinesis. [id number] mitral valve regurgitation. The estimated pulmonary arterial pressure is 22 mmHg. BP: / HR: Rhythm: MEASUREMENTS (Male / Female) Normal Values Technical Quality: 2D ECHO LV Diastolic Diameter PLAX 3.3 cm 4.2 - 5.9 / 3.9 - 5.3 cm LV Systolic Diameter PLAX 2.9 cm IVS Diastolic Thickness 1.2 cm 0.6 - 1.0 / 0.6 - 0.9 cm LVPW Diastolic Thickness 1.2 cm 0.6 - 1.0 / 0.6 - 0.9 cm LV Relative Wall Thickness 0.7 RV Internal Dim ED PLAX 3.1 cm LVOT Diameter 2.0 cm Aortic Root Diameter 2.7 cm LA Systolic Diameter LX 3.2 cm 3.0 - 4.0 / 2.7 - 3.8 cm M-MODE Aortic Root Diameter MM 3.1 cm LA Systolic Diameter MM 3.4 cm LA Ao Ratio MM 1.1 AV Cusp Separation MM 1.5 cm DOPPLER AV Peak Velocity 100.0 cm/s AV Peak Gradient 4.0 mmHg LVOT Peak Velocity 49.9 cm/s LVOT Peak Gradient 1.0 mmHg AV Area Cont Eq pk 1.6 cm Mitral E Point Velocity 27.6 cm/s Mitral A Point Velocity 61.2 cm/s Mitral E to A Ratio 0.5 TR Peak Velocity 170.0 cm/s TR Peak Gradient 11.6 mmHg Right Atrial Pressure 10.0 mmHg Pulmonary Artery Systolic Pressu 21.6 mmHg Right Ventricular Systolic Press 21.6 mmHg PV Peak Velocity 97.7 cm/s PV Peak Gradient 3.8 mmHg FINDINGS LEFT VENTRICLE Normal left ventricular size. Wall thickness is measured at the upper limits of normal. The left ventricular systolic function is severely reduced with an estimated ejection fraction in th e range of 25-30%. There is regional mid to apical anteroseptal, anterior, and anterolateral hypokinesis. RIGHT VENTRICLE Normal right ventricular size and systolic function. LEFT ATRIUM The left atrial size is normal. RIGHT ATRIUM The right atrial size is normal. ATRIAL SEPTUM Normal atrial septal thickness without atrial level shunting by limited color doppler interrogation. AORTA The aortic root and proximal ascending aorta are normal in size on limited imaging. MITRAL VALVE [id number] mitral valve regurgitation. AORTIC VALVE Trileaflet aortic valve. No aortic valve stenosis or regurgitation. TRICUSPID VALVE The estimated pulmonary arterial pressure is 22 mmHg. PULMONARY VALVE No pulmonary valve regurgitation or stenosis. VESSELS The inferior vena cava is normal in size. PERICARDIUM No pericardial effusion. Oliver Maldonado MD, FACC (Electronically Signed) Final Date:17 June 2018 10:26
[2018-06-17] MEDS ORDERED: Iohexol 350 MG/ML 50 ML Vial (for Cath Lab) IVCONTRAST ONE (10:30)
--- NOTE | 2018-06-17 11:00 | CATHPROC ---
eTelemetry HIS Report Study Information Study Number Admission Scheduled Start Study Start [id number] Jun 16 2018 10:20PM 06/17/2018 Jun 17 2018 9:54AM [place] [facility] Catheterization Admit Source Facility Department Other [facility] - Ict Quality Assurance Engineer Physician and Clinical Staff Initial Bhavik Jin Project Geophysicistkatja Bridges RN, Kade Project GeophysicistShaheen Gonzalez,YENI Recorder Breana Hinton ,RT(R) Scrub Velia Arias,RT(R) Procedures Performed Procedure Location (Site) Vessel Name Coronary Angiograms LCA Left Coronary Coronary Angiograms RCA Right Coronary L Heart Cath Equipment Time Ice Cream Van Vendor Description Size Mfg Part Number Used/Scraped TRANSDUCER, TRUWAVE [id number] 09:57 SALMERON WOLF * Used W/STOCKCOCK *[id number] 534-518T *[id number] 534-521T *[id number] 09:57 [employer] BLANKET,WARM AIR CCL * Used *[id number] 09:57 [employer] PACK, CCL CUSTOM * Used *[id number] 09:57 [employer] SUPPORT, ARTERIAL ADULT 76427 *[id number] Used BAND, RADIAL COMPRESSION TR [id number] 10:43 [employer] MEDICAL 24CM Used SHORT 24 *[id number] 09:57 PublishThis WIRE, EXCHANGE 260CM 3MMJ 260CM Used *[id number] 09:57 NAMIC MANIFOLD, 4 PORT * Used *[id number] 09:57 [employer]COMED OMNIPAQUE, 350 MG, 150ML 150ML [id number] Used 10:44 [employer]ED OMNIPAQUE, 350 MG, 150ML 150ML [id number] Used SHEATH, FR6 TRANSRADIAL [id number] 09:57 [email or web address] MEDICAL FR 6 Used SLENDER 10CM *[id number] History: Allergies Allergy Reaction No Known Allergies History: Risk Factors Family History of Hypertension Dyslipidemia Previous ND Previous Heart Failure Premature CAD No Yes No No Yes Prior Valve Prior PCI Prior CABG Surgery No No No Cerebrovascular Peripheral Artery Chronic Lung On Dialysis Diabetes Disease Disease Disease No No No Yes No Labs Hgb (g/dl) Hct (%) WBC (l/cumm) Platelets (thousands) 11.60-17.00 35.00-51.00 4.00-11.00 150.00-450.00 15.2 45.4 10.7 287 Glucose (mg/dl) BUN (mg/dl) Creatinine (mg/dl) BUN:Creatinine (1:x) 74.00-106.00 7.00-18.00 0.50-1.30 10.00-20.00 118 19 0.7 27.1 Na (meq/l) K (meq/l) 136.00-145.00 3.50-5.10 141 4.1 INR (PTT:PT) 0.90-1.10 1.1 Troponin I (ng/ml) CPK-MB (ng/ML) 0.02-0.05 0.50-3.60 1 Not Drawn Medication Medication Total Dose (Bolus/Oral) Medication Total Dosage/Unit 1% XYLOCAINE 5 mL FENTANYL 25 mcg HEPARIN 2900 units VERSED 0.5 mg Medications (Bolus/Oral) Medication Time Given Dosage/Unit Administered By Reason VERSED 06/17/2018 10:26:26 AM 0.5 mg Shaheen Edwards 0.5 mg VERSED given in lab by Shaheen Edwards RN via Peripheral IV. Ordered by Bhavik Solares FENTANYL 06/17/2018 10:26:34 AM 25 mcg Shaheen Edwards 25 mcg FENTANYL given in lab by Shaheen Edwards RN via Peripheral IV. Ordered by Bhavik Solares 1% XYLOCAINE 06/17/2018 10:27:32 AM 5 mL Shaheen Edwards 5 mL 1% XYLOCAINE given in lab by Shaheen Edwards RN in Right Radial via Subcutaneous. Ordered by Bhavik Villatoro HEPARIN 06/17/2018 10:32:04 AM 2900 units Shaheen Edwards 2900 units HEPARIN given in lab by Shaheen Edwards RN via Peripheral IV. Ordered by Bhavik Solares Medication (Drip) Medication Time Given Dosage/Unit Concentration/Unit Diluent (ml) Solution IV Solutions 06/17/2018 10:00:24 AM 50 mL (IV) NaCl .9 IV Solutions given in lab by Kade Bridges RN via Peripheral IV. Pump/Drip Flow using NaCl .9. Initial Case Assessment Cardiovascular HR NIBP Chest Pain 87 108/78 0 Edema Present Skin color Skin None Normal Warm Dry Circulatory - Right Pulses Dorsalis Pedis Femoral Radial 2 2 2 Scale (0,1,2,3,4,d) Circulatory - Left Pulses Dorsalis Pedis Femoral Radial 2 2 Scale (0,1,2,3,4,d) Neurological State Oriented to time-place- Alert Moves all extremities person Respiration - General Respiration Rate SpO2 (%) (B/min) 12 97 Final Case Assessment Cardiovascular HR NIBP Chest Pain 87 108/78 0 Edema Present Skin color Skin None Normal Warm Dry Circulatory - Right Pulses Dorsalis Pedis Femoral Radial 2 2 2 Scale (0,1,2,3,4,d) Circulatory - Left Pulses Dorsalis Pedis Femoral Radial 2 2 Scale (0,1,2,3,4,d) Neurological State Oriented to time-place- Alert Moves all extremities person Respiration - General Respiration Rate SpO2 (%) (B/min) 12 97 Chronological Log Time Study Chronological Log 9:58:27 Patient arrived via Bed. 9:58:31 Patient Name, D.O.B, / Armband Verified By R.N. 10:00:15 Consent signed by the physician and the patient and verified by the Ict Quality Assurance Engineer staff. 10:00:17 Pre-op and post- op instructions given; patient acknowledges understanding of instructions. 10:00:17 Verbal Stimulation=2 Physical Stimulation=2 Airway=2 Respiration=2 TOTAL=8. (0=absent, 1=li mited, 2=present) 10:00:18 Allens test performed on the right radial and ulnar artery. positive 10:00:20 Patient has been NPO for More than 6Hrs. 10:00:21 Skin Breakdown- none per patient 10:00:21 Patient Warmer Placed on the Table. 10:00:23 Jamie Prominences Protected 10:00:24 A # 20 IV was noted in the Antecubital (right). Grade = 0 10:00:24 IV Solutions given in lab by Kade Bridges RN via Peripheral IV. Pump/Drip Flow using NaCl . 9. 10:00:25 History and physical on the chart or being dictated. Assessment: Initial Case, HR=87 BPM, FSEZ=340/78 mmhg, Chest Pain=0, Edema=None, Color=Normal, Skin = Warm, Dry Right Pulses: Bc Ped=2, Femoral=2, Radial=2 10:00:25 Left Pulses: Bc Ped=2, Femoral=2 Neurological: State=Alert, Ox3, VERA Respiration: Resp=12 B/min, SpO2=97 % Vitals capture started with the following parameters, Patient=Adult, Interval=3 min, Initial Pr mtrwzu=899 mmHg, 10:11:06 Deflation Rate=5 mmHg, Cuff placed on Left Arm 10:11:41 HR=88 bpm, PTFB=594/78 mmhg, SpO2=98.0 %, Resp=11 B/min, Pain=0, Brianna=10, Winston=2 10:12:41 Reference ECG taken 10:14:37 HR=90 bpm, NIBP=97/71 mmhg, SpO2=98.0 %, Resp=18 B/min, Pain=0, Brianna=10, Winston=2 10:17:23 Right Radial and groin(s) prepped with 2% chlorhexidine, and draped after a 3 min. waiting time. 10:17:28 MD arrived. 10:17:33 HR=87 bpm, VKJK=863/73 mmhg, SpO2=98.0 %, Resp=16 B/min, Pain=0, Brianna=10, Winston=2 10:20:38 HR=92 bpm, NIBP=83/68 mmhg, SpO2=99.0 %, Resp=12 B/min, Pain=0, Brianna=10, Winston=2 10:22:29 NIBP STAT measurement started. 10:23:30 HR=89 bpm, GOSX=902/72 mmhg, SpO2=96.0 %, Resp=11 B/min 10:25:07 Pressure channel 1 zeroed. Time Out. Correct patient, correct procedure, correct physician, labs, allergies, and equipment verified with orthodontic laboratory technician 10:25:38 team present. Fire risk assesment completed (see hard stop sheet for coding). Time Out Conc urred by MD and individual staff in procedure. 10:26:26 0.5 mg VERSED given in lab by Shaheen Edwards, YENI via Peripheral IV. Ordered by Shayla Solares 10:26:34 25 mcg FENTANYL given in lab by Shaheen Edwards, YENI via Peripheral IV. Ordered by Bhavik Solares 10:26:36 HR=87 bpm, CPMW=748/76 mmhg, SpO2=98.0 %, Resp=14 B/min, Pain=0, Brianna=10, Winston=2 10:27:30 Case Start 5 mL 1% XYLOCAINE given in lab by Shaheen Edwards, RN in Right Radial via Subcutaneous. Ordered by Bhavik Solares 10::32 G. 10::32 Access site was Right Radial Artery . A SHEATH, FR6 TRANSRADIAL SLENDER 10CM FR 6 was advanced into the Radial (right) using the Perc utaneous 10::40 technique. 10:29:40 HR=88 bpm, NIBP=98/62 mmhg, SpO2=97.0 %, Resp=12 B/min, Pain=0, Brianna=10, Winston=2 10:29:50 NIBP STAT measurement started. A JR 4.0 INFINITI CATHETER FR 5 was advanced over a wire. OMNIPAQUE, 350 MG, 150ML 150ML was us ed for 10:30:01 injections. 10:30:19 HR=90 bpm, NIBP=91/59 mmhg, SpO2=97.0 %, Resp=12 B/min, Pain=0, Brianna=10, Winston=2 Recorded Pressure: LV, HR=96, Condition=Condition 1 10:31:12 (Left Ventricle) LV 81/2/1 Recorded Pressure: LV, Ao, HR=94, Condition=Condition 1 10:31:44 (Left Ventricle) LV 83/2/5, (Aorta) Ao 77/56/65 10:32:04 2900 units HEPARIN given in lab by Shaheen dEwards, YENI via Peripheral IV. Ordered by Bhavik Barth 10:32:37 HR=93 bpm, NIBP=78/57 mmhg, SpO2=95.0 %, Resp=17 B/min, Pain=0, Brianna=10, Winston=2 10:32:55 The RCA was injected and visualized at various angles. OMNIPAQUE, 350 MG, 150ML 150ML used . After removing the current catheter a JL 3.5 INFINITI CATHETER FR 5 was advanced over a WIRE, E XCHANGE 260CM 10:34:13 3MMJ 260CM. 10:35:35 HR=89 bpm, NIBP=77/55 mmhg, Resp=18 B/min, Pain=0, Brianna=10, Winston=2 10:36:15 The LCA was injected and visualized at various angles. OMNIPAQUE, 350 MG, 150ML 150ML used . 10:38:35 HR=87 bpm, NIBP=76/57 mmhg, SpO2=96.0 %, Resp=17 B/min, Pain=0, Brianna=10, Winston=2 10:41:04 Catheter was removed 10:41:37 HR=83 bpm, NIBP=87/51 mmhg, SpO2=96.0 %, Resp=16 B/min, Pain=0, Brianna=10, Winston=2 10:43:25 Case End (Physician broke scrub) Assessment: Final Case, HR=87 BPM, WXMV=481/78 mmhg, Chest Pain=0, Edema=None, Color=Normal, S kin = Warm, Dry Right Pulses: Bc Ped=2, Femoral=2, Radial=2 10:44:01 Left Pulses: Bc Ped=2, Femoral=2 Neurological: State=Alert, Ox3, VERA Respiration: Resp=12 B/min, SpO2=97 % 10:44:19 Catheter(s) removed without difficulty Radial Compression Device Used. 11 mLs of air placed in BAND, RADIAL COMPRESSION TR SHORT 24 2 4CM. Affected 10:44:22 hand 97 % O2 saturation. 10:44:35 Sterile dressing applied to site 10:44:36 No case complications noted. 10:44:38 HR=83 bpm, NIBP=79/57 mmhg, SpO2=98.0 %, Resp=21 B/min 10:44:38 Cine recording checked. 10:44:39 Bedside Report will be given. 10:44:41 A Left Heart Cath was performed. 10:47:38 HR=83 bpm, NIBP=82/59 mmhg, SpO2=96.0 %, Resp=13 B/min, Pain=0, Brianna=10, Winston=2 10:51:13 Patient moved to stretcher End Study - Contrast Media Used In Study Contrast Total Opened (mL) Total Used (mL) Total Wasted (mL) Omnipaque 30 30 0 End Study - Maximum Contrast Load Max Contrast Load (mL) 514.3 End Study - Radiation Exposure Fluoro Time Fluoro Dose (mGy) Cine Dose (uGym2) (minutes) 1.7 434 2267 End Study - Patient Disposition Complications Transferred To Interventional Outcome No Telemetry Bed No attempt made
--- NOTE | 2018-06-17 13:43 | ECG ---
Date Performed: 06/16/2018 Time Performed: 20:14:05 PTAGE: 72 years EKG: Sinus rhythm BORDERLINE LEFT AXIS DEVIATION NONSPECIFIC T-WAVE ABNORMALITY BORDERLINE ECG Compared to PREVIOUS TRACING , the minimal lateral T-wave flattening is new. PREVIOUS TRACIN2016 11.51 DOCTOR: Jessica Gaspar Interpretating Date/Time 06/17/2018 13:43:36
--- NOTE | 2018-06-17 13:45 | ECG ---
Date Performed: 06/17/2018 Time Performed: 02:47:54 PTAGE: 72 years EKG: Sinus rhythm Leftward axis Anterolateral T wave changes may be due to myocardial ischemia Abnormal ECG Compared t o PREVIOUS TRACING , there has been an increase in the lateral T-wave changes. Clinical cor relation will be important. PREVIOUS TRACIN06/16/2018 20.14 DOCTOR: Jessica Gaspar Interpretating Date/Time 06/17/2018 13:44:02
--- NOTE | 2018-06-17 23:57 | MB ---
cc: Bhavik Solares DO DATE: 06/17/2018 REASON FOR CONSULTATION: Shortness of breath, NSTEMI. HISTORY OF PRESENT ILLNESS: Vera Fleming is a pleasant 72-year-old female who presented to [facility] due to increasing shortness of breath. Starting around [place] time, she was starting to notice some dizziness but thought nothing of it. She then started noticing shortness of breath over the past week and was started on antibiotics and steroids as she thought she was having a COPD exacerbation. Her shortness of breath continued and started noticing some dizziness. She states that she had some mild chest pain, but she felt like she could just not get a full breath more than anything. On arrival, she was found to have an elevated troponin, and I was asked to see her for this. In seeing her, she is currently hemodynamically stable without chest pain. PAST MEDICAL HISTORY: 1. COPD. 2. Asthma. 3. Hyperlipidemia. PAST SURGICAL HISTORY: 1. Hysterectomy. 2. Appendectomy. 3. Cholecystectomy. ALLERGIES: NO KNOWN DRUG ALLERGIES. MEDICATIONS: 1. Albuterol 2 puffs every 4-6 hours as needed. 2. Prednisone 10 mg daily. 3. Clarithromycin 250 mg b.i.d. 4. Breo Ellipta 200/25 daily. FAMILY HISTORY: Denies premature coronary artery disease or sudden cardiac within the family. SOCIAL HISTORY: The patient is a former smoker. Denies alcohol or drug abuse. REVIEW OF SYSTEMS: Fourteen systems were reviewed including osteopathic. Pertinent positives and negatives above, otherwise negative. PHYSICAL EXAMINATION: VITAL SIGNS: Temperature 98.1, heart rate 88, blood pressure 116/62, respirations 20, pulse oximetry 94% on room air. GENERAL: The patient appears well, in no acute distress. Alert, awake and oriented x3. HEENT: Extraocular muscles intact. Mucous membranes moist. NECK: Supple. No JVD at 45 degrees. No carotid bruits heard bilaterally. Carotid upstroke is brisk in nature. HEART: Regular rate and rhythm. Positive first and second heart sounds with no noted murmurs, gallops, or rubs. LUNGS: Decreased breath sounds at bilateral bases. ABDOMEN: Soft, nontender, nondistended. No organomegaly noted. EXTREMITIES: Trace edema bilaterally. NEUROLOGIC: No focal deficits. SKIN: Warm, dry, and intact. OSTEOPATHIC: No kyphoscoliosis, lordosis, or paraspinal tender points. LABORATORY DATA: Hemoglobin 15.2, hematocrit 45.4, platelets 287, potassium 4.1, BUN 19, creatinine 0.78. Troponin 1.27 decreasing to 1.0. BNP 676. Electrocardiogram (06/17/2018 at 0247): Sinus rhythm, left axis deviation, nonspecific ST-T wave changes. IMPRESSION: 1. Shortness of breath. 2. Non-ST elevation myocardial infarction. 3. Probable heart failure of unknown type. 4. History of chronic obstructive pulmonary disease. 5. History of asthma. RECOMMENDATIONS: 1. Ms. Fleming presented with significant shortness of breath for which she attempted to treat as a COPD exacerbation but did not get better. 2. Most likely this was actually due to congestive heart failure. 3. She does have a significantly elevated troponin, and because of that, she will be recommended cardiac catheterization to rule out significant disease as a possible cause. 4. We will attempt to continue to diurese her as possible. 5. Further recommendations will be made based on the hospital course. 6. Risks, benefits, and alternatives have been explained to the patient. Thank you for allowing me to see Vera Fleming. If there are any questions, please do not hesitate to call. DO RAMIRO Dee/rm , 11:34 PM , 11:43 PM
--- NOTE | 2018-06-18 00:29 | MA ---
cc: Bhavik Solares DO DATE: 06/17/2018 PROCEDURE: Left heart catheterization, coronary angiogram, moderate sedation 20 minutes. PREPROCEDURE DIAGNOSES: Shortness of breath, acute heart failure, [id number] myocardial infarction. 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 MEDICATIONS: Versed 0.5 mg, fentanyl 25 mcg, heparin 2900 units. CONTRAST USED: 30 mL FLUOROSCOPY: 1.7 minutes. MODERATE SEDATION: 20 minutes. FRAILTY SCORE: 4 ESTIMATED BLOOD LOSS: 10 mL PROCEDURAL SUMMARY: Vera Fleming is a pleasant 72-year-old female who presented to [facility] Emergency Room due to shortness of breath. She was found to have an elevated troponin, and because of this, she was recommended cardiac catheterization. Risks, benefits, and alternatives were explained to her, and she was consented as such. She was brought to the lab and prepped in the usual sterile fashion. The right radial artery was accessed using modified Seldinger technique and placement of a 5/6 Pashto slender sheath. This was easily aspirated and flushed. A JR4 was advanced over a J-wire to the ascending aorta and across the aortic valve for measurement of left ventricular pressure. This was pulled back across the aortic valve showing no significant gradient of aortic stenosis. JR4 was used for selective angiography of the right coronary artery system. This was exchanged out for a JL3.5, which was used for selective angiography of the left coronary artery system. JL3.5 was removed over a J wire. A radial band was placed over the arteriotomy site for hemostasis. The patient left the catheterization lab cardiovascularly stable. FINDINGS: The left main is a normal-sized vessel with no disease. It bifurcates into an LAD and circumflex. The LAD is a moderate to large sized vessel with no significant disease. The mid portion of this appears to go intramuscular with a myocardial bridge for a long tubular lesion before returning to epicardial in the distal portion. It gives off 2-3 diagonals with the last one being large, having multiple branches, and no significant disease. Left circumflex: Small diminutive vessel, which gives off 1 small obtuse marginal and no significant disease. RCA: Large vessel which is superdominant. Overall, it has no significant disease. It does have significant tortuosity throughout. Distally, it supplies the PDA as well as a posterolateral branch. The PDA covers part of the apical region of the heart. LVEDP 5. IMPRESSIONS: 1. Non-ST elevation myocardial infarction, possibly type 2. 2. Congestive heart failure of unknown type. 3. 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 RECOMMENDATIONS: 1. Ms. Fleming appears to have myocardial bridging of the LAD and will be recommended continued medical therapy. 2. Review of her echo was read as hypokinesis of the anterior septal, anterior, and anterolateral portions of the heart. In reviewing the films, it also appears that the inferior wall was hypokinetic, and there is a possible Takotsubo cardiomyopathy with movement of the basal steele with ballooning of the apex. 3. We will continue to attempt to diurese her as possible, although difficult with her borderline hypotension. 4. She will also need to be started on heart failure medications if possible. 5. Further recommendations will be made based on the hospital course. Thank you for allowing me to see Vera Fleming. If there are any questions, please do not hesitate to call. DO RAMIRO Dee/tammy , 12:01 AM , 12:12 AM
[2018-06-18] MEDS ORDERED: MethylPREDNISolone Sod Succinate Inj 125 MG/2 ML Vial IV.PUSH ONE (01:12)
[2018-06-18 04:32] LABS: Hematocrit 46.1 % (35.0-46.0); Hemoglobin 15.4 gm/dL (11.6-15.3)
[2018-06-18] MEDS: ALPRAZolam 0.5 MG Tablet PO PRN ×2 (04:46→20:32)
[2018-06-18 04:56] LABS: Calcium 8.1 mg/dL (8.5-10.1); Carbon Dioxide 27.7 meq/L (21.0-32.0); Magnesium 2.4 mg/dL (1.5-2.5); Potassium 4.3 meq/L (3.5-5.1)
[2018-06-18] MEDS ORDERED: predniSONE 10 MG Tablet PO SCH (09:00)
[2018-06-18] MEDS: Lisinopril 5 MG Tablet PO SCH (09:11)
--- NOTE | 2018-06-18 09:58 | P.PNIM ---
Subjective Interval history: Patient seen and examined this morning at the bedside no subjective fever or chills says she had heavier breathing overnight and given nebulizer but did not feel a greeat response + wheeze noticed just received a dose of lasix this morning wants to work with PT on home 2L oxygen when at home normally. just got 10mg prednisone this am --> i will increase too 40mg total and continue didnt get azithromycin --> will add today too Physical Exam Vital signs: Last Vital Signs Temp 98.1 F 06/18/18 07:34 Pulse 84 06/18/18 08:06 Resp 17 06/18/18 08:06 BP 112/70 06/18/18 07:34 Pulse Ox 92 L 06/18/18 08:06 Intake & Output 06/16/18 06/17/18 06/18/18 06/19/18 06:59 06:59 06:59 06:59 Intake Total 0 / 0 240 / 240 Output Total 950 / 950 625 / 625 Balance -950 / -950 -385 / -385 Weight 72 kg 72 kg Narrative: GENERAL: Well-nourished patient on oxygen SKIN: Warm and dry. HEAD: Normocephalic. EYES: No scleral icterus. No injection or drainage. NECK: Supple, trachea midline. No JVD or lymphadenopathy. CARDIOVASCULAR: Regular rate and rhythm without murmurs, gallops, or rubs. RESPIRATORY: Diminished base sounds bilaterally without intercostal muscle use, + faint wheeze bilaterally noted. GASTROINTESTINAL: Abdomen soft, non-tender, nondistended. + BS MUSCULOSKELETAL: No cyanosis, or edema. Results Labs CBC & Chem 7: 06/18/18 03:21 06/18/18 03:21 Assessment and Plan Plan Patient is a pleasant 72-year-old female with past medical history of COPD presenting with worsening shortness of breath found to have troponin anemia status post catheterization by cardiology concerning for possible stress cardiomyopathy with superimposed exacerbation of COPD. Cardiology:? Stress cardiomyopathy, troponemia, CHF, and NSTEMI Cardiology consulted and recommendations appreciated via EMR. At this time cardiology recommends medical management with optimization of fluid balance Patient is status post catheterization by cardiology recommendations appreciated via EMR EKG as needed chest pain Gentle diuresis with Lasix administered for the first time this morning. Coreg 3.125 mg twice daily, lisinopril 2.5 mg daily, aspirin 81 mg daily, Lasix 20 mg twice daily as blood pressure tolerates Goal output 1-1.5 L negative Strict I's and O's recording explained to patient and she has equipment at the bedside to collect urine pulmonary: COPD DuoNeb Status post Solu-Medrol on 06/17. Transition over to oral regimen with prednisone 40 mg daily Azithromycin 500 mg x1 today. Azithromycin 250 mg daily tomorrow Incentive spirometry daily Supplemental oxygen to maintain saturation 88-92% Pulmonary evaluation for optimization of regimen prior to discharge. Patient reports that Brio Ellipta has not helped her. CODE STATUS: Full code DVT prophylaxis heparin subcu Diet: Cardiac health Disposition: Medical surgery unit Plan discussed with patient and daughter at the bedside. All questions answered in detail Progress Note: Quality VTE Deep Vein Thrombosis/Pulmonary Embolism Present on Admission: No
[2018-06-18] MEDS ORDERED: Azithromycin 250 MG Tablet PO ONE (10:00)
[2018-06-18] MEDS ORDERED: predniSONE 10 MG Tablet PO ONE (11:00)
--- NOTE | 2018-06-18 12:36 | P.PNCA ---
Subjective Interval history: Still short of breath this morning, but somewhat better Woke up with a rash/welts Medications and Allergies Active Medications: Active Medications Acetaminophen (Tylenol) 650 mg PO Q4H PRN PRN Reason: Temp > 100.4 Albuterol (Duoneb Neb (Prn)) 1 ampul NEB Q4HR NEB PRN PRN Reason: DYSPNEA Last Admin: 06/18/18 11:42 Dose: 1 ampul Alprazolam (Xanax) 0.25 mg PO Q6H PRN PRN Reason: Anxiety Last Admin: 06/18/18 04:46 Dose: 0.25 mg Aspirin (Aspirin Chew) 81 mg PO DAILY [facility] Last Admin: 06/18/18 09:11 Dose: 81 mg Azithromycin (Zithromax) 250 mg PO DAILY [facility] Carvedilol (Coreg) 3.125 mg PO BID [facility] Last Admin: 06/18/18 09:09 Dose: 3.125 mg Diphenhydramine HCl (Benadryl) 25 mg PO Q6H PRN PRN Reason: ITCHING/SWELLING Last Admin: 06/18/18 11:37 Dose: 25 mg Fluticasone/Vilanterol (Breo Ellipta 200/25 Mcg Inh) 1 puff INH DAILY [facility] Last Admin: 06/18/18 09:12 Dose: 1 puff Furosemide (Lasix Inj) 20 mg IV.PUSH BID@0900,1800 [facility] Lisinopril (Prinivil) 2.5 mg PO DAILY [facility] Last Admin: 06/18/18 09:11 Dose: 2.5 mg Ondansetron HCl (Zofran Inj) 4 mg IV.PUSH Q6H PRN PRN Reason: NAUSEA OR VOMITING Ondansetron HCl (Zofran Inj) 4 mg IV.PUSH Q6H PRN PRN Reason: NAUSEA OR VOMITING Prednisone (Deltasone) 40 mg PO DAILY [facility] Sodium Chloride (Ns Flush) 2 ml IV.FLUSH BID [facility] Last Admin: 06/18/18 09:04 Dose: 2 ml Sodium Chloride (Ns Flush) 2 ml IV.FLUSH PRN PRN PRN Reason: FLUSH AFTER USING IV ACCESS Last Admin: 06/16/18 23:45 Dose: 2 ml Allergies Allergy/AdvReac Type Severity Reaction Status Date / Time No Known Allergies Allergy Verified 06/16/18 19:22 Home Medications Medication Instructions Recorded Confirmed Type albuterol sulfate [Ventolin HFA] 2 puff INHALATION Q4-6H PRN 06/16/18 06/16/18 History clarithromycin 250 mg PO BID 06/16/18 06/16/18 History prednisone 10 mg PO DAILY 06/16/18 06/16/18 History fluticasone-vilanterol [Breo 1 inh INHALATION DAILY 06/17/18 06/17/18 History Ellipta] alprazolam [Xanax] PO Q4-6H PRN 06/18/18 History Physical Exam Vital signs: Vital Signs 06/17/18 13:16 06/17/18 13:20 06/17/18 14:23 Temperature Pulse Rate 89 90 Respiratory Rate 16 Blood Pressure 98/54 L Pulse Oximetry 06/17/18 15:12 06/17/18 15:14 06/17/18 16:00 Temperature 99.0 F 99.0 F Pulse Rate 101 H 95 H 96 H Respiratory Rate 16 16 Blood Pressure 109/68 109/58 L Pulse Oximetry 95 06/17/18 17:00 06/17/18 18:00 06/17/18 19:00 Temperature Pulse Rate 98 H 96 H 96 H Respiratory Rate Blood Pressure Pulse Oximetry 06/17/18 20:00 06/17/18 20:05 06/17/18 21:00 Temperature 99.1 F Pulse Rate 97 H 82 100 H Respiratory Rate 16 20 Blood Pressure 112/69 Pulse Oximetry 95 06/17/18 22:00 06/17/18 23:00 06/18/18 00:00 Temperature 98.5 F Pulse Rate 96 H 96 H 95 H Respiratory Rate 16 Blood Pressure 112/70 Pulse Oximetry 95 06/18/18 00:43 06/18/18 01:00 06/18/18 02:00 Temperature Pulse Rate 88 92 H 84 Respiratory Rate 20 Blood Pressure Pulse Oximetry 06/18/18 03:00 06/18/18 04:00 06/18/18 05:00 Temperature 98.5 F Pulse Rate 84 84 81 Respiratory Rate 16 Blood Pressure 120/75 Pulse Oximetry 95 06/18/18 06:00 06/18/18 07:00 06/18/18 07:34 Temperature 98.1 F Pulse Rate 82 81 82 Respiratory Rate 22 Blood Pressure 112/70 Pulse Oximetry 94 L 06/18/18 08:06 06/18/18 09:00 06/18/18 10:00 Temperature Pulse Rate 84 95 H 95 H Respiratory Rate 17 Blood Pressure Pulse Oximetry 92 L 06/18/18 11:00 06/18/18 11:17 06/18/18 11:42 Temperature 98.2 F Pulse Rate 94 H 95 H 95 H Respiratory Rate 20 16 Blood Pressure 104/73 Pulse Oximetry 96 06/18/18 12:00 Temperature Pulse Rate 92 H Respiratory Rate Blood Pressure Pulse Oximetry Intake & Output 06/17/18 06/18/18 06/18/18 18:59 06:59 18:59 Intake Total 240 / 240 Output Total 300 / 300 325 / 325 Balance -300 / -300 -85 / -85 Weight 72 kg Intake: Oral 240 / 240 Output: Urine 300 / 300 325 / 325 Other: Date of Last Bowel Movement 06/17/18 06/17/17 # Bowel Movements 0 Narrative: GENERAL: Well-nourished patient on oxygen SKIN: Warm and dry. HEAD: Normocephalic. EYES: No scleral icterus. No injection or drainage. NECK: Supple, trachea midline. No JVD or lymphadenopathy. CARDIOVASCULAR: Regular rate and rhythm without murmurs, gallops, or rubs. RESPIRATORY: Diminished base sounds bilaterally without intercostal muscle use, + wheeze bilaterally noted. GASTROINTESTINAL: Abdomen soft, non-tender, nondistended. + BS MUSCULOSKELETAL: No cyanosis, or edema. Results 06/18/18 03:21 06/18/18 03:21 Cardiac Enzymes 06/16/18 06/16/18 06/17/18 Range/Units 20:30 20:30 03:24 AST 22 (15-37) U/L Troponin I 1.27 H* 1.00 H* D (0.02-0.05) ng/mL B-Natriuretic Peptide 676 H (0-100) pg/mL Coagulation 06/16/18 06/16/18 06/17/18 Range/Units 20:30 20:30 03:24 PT 10.7 (9.8-11.6) sec APTT 28.2 58.1 H D (23.4-31.7) sec B-Natriuretic Peptide 676 H (0-100) pg/mL 06/17/18 Range/Units 09:26 PT (9.8-11.6) sec APTT 49.5 H (23.4-31.7) sec B-Natriuretic Peptide (0-100) pg/mL CBC 06/16/18 06/17/18 06/18/18 Range/Units 20:30 03:24 03:21 WBC 9.9 10.7 (4.0-11.0) th/mm3 RBC 5.22 5.11 (4.00-5.30) mil/mm3 Hgb 15.2 15.2 15.4 H (11.6-15.3) gm/dL Hct 45.3 45.4 46.1 H (35.0-46.0) % Plt Count 271 287 (150-450) th/mm3 Neut # (Auto) 8.4 H 7.9 H (1.8-7.7) th/mm3 Lymph # (Auto) 0.9 L 1.9 (1.0-4.8) th/mm3 Stanton # (Auto) 0.5 0.8 (0.0-0.9) th/mm3 Eos # (Auto) 0.0 0.0 (0.0-0.4) th/mm3 Baso # (Auto) 0.1 0.0 (0.0-0.2) th/mm3 Comprehensive Metabolic Panel 06/16/18 06/17/18 06/18/18 Range/Units 20:30 03:24 03:21 Sodium 139 141 138 (136-145) meq/L Potassium 4.4 4.1 4.3 (3.5-5.1) meq/L Chloride 107 106 104 (98-107) meq/L Carbon Dioxide 25.5 26.2 27.7 (21.0-32.0) meq/L BUN 17 19 H 25 H (7-18) mg/dL Creatinine 0.76 0.78 0.77 (0.50-1.00) mg/dL Calcium 8.5 8.3 L 8.1 L (8.5-10.1) mg/dL AST 22 (15-37) U/L ALT 29 (10-53) U/L Alkaline Phosphatase 62 (45-117) U/L Total Protein 7.2 (6.4-8.2) g/dL Albumin 3.7 (3.4-5.0) g/dL Intake and Output 06/17/18 06/18/18 06/18/18 22:59 06:59 14:59 Intake Total 240 / 240 Output Total 300 / 300 325 / 325 Balance -300 / -300 -85 / -85 Intake: Oral 240 / 240 Output: Urine 300 / 300 325 / 325 Other: Date of Last Bowel Movement 06/17/17 06/17/18 06/17/17 # Bowel Movements 0 Weight 72 kg - Imaging and Cardiology Imaging: Impressions Chest X-Ray 06/16/18 19:42 CONCLUSION: 1. Underlying emphysema and mild scarring. 2. No evidence of pneumonia. 3. [place] type hernia noted seen on the prior CT containing omental fat. Assessment and Plan - Plan 1. Non-ST elevation myocardial infarction, possibly type 2. Cath showing myocardial bridging of LAD Con't medical management 2. Acute systolic heart failure Echo looks like Takotsubo cardiomyopathy Attempt to diurese as possible Believe a large part of her SOB is COPD exacerbation. Will place on Coreg and Lisinopril Will have to watch with borderline hypotension 3. COPD exacerbation Agree with steroids, just need to taper off as soon as possible Increases fluid retention 4. Drug allergy As she woke up with is, more likely IV contrast or Coreg Will see how she does and if worse or not resolving then will need to stop Coreg 5. If concerns over the weekend, please call the service for covering physician
[2018-06-18] MEDS: MethylPREDNISolone Sod Succinate Inj 40 MG/ML Vial IV.PUSH SCH (20:33)
--- NOTE | 2018-06-18 20:39 | MB ---
cc: Dagoberto Wakefield MD DATE: 06/18/2018 REQUESTING PHYSICIAN: Lilly Lynn MD REASON FOR CONSULTATION: Shortness of breath. HISTORY OF PRESENT ILLNESS: Ms. Fleming is a 72-year-old white female with a history of COPD. The patient had not been doing well for the last 4-5 days. She had emergency pack of clarithromycin and prednisone. She started taking that about 2 days ago. She was feeling that her breathing was getting worse and she was having tightness in her chest. Did not have any fever or chills. No night sweats. Because of the symptoms, the patient came to the hospital, the patient was seen by aluminum shingle roofer, Dr. Solares. She underwent cardiac catheterization. 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 She feels very anxious. She gets Xanax, which does help her. PAST MEDICAL HISTORY: Significant for history of COPD and asthma, hypertension, hyperlipidemia. PAST SURGICAL HISTORY: Hysterectomy, appendectomy, and cholecystectomy. MEDICATIONS: She is currently takin. Brio Ellipta 200/25 once a day. 2. Lasix 20 mg twice a day. 3. Lisinopril 2.5 mg a day. 4. Prednisone 40 mg a day. 5. Zithromax 500 mg a day. ALLERGIES: NO KNOWN DRUG ALLERGIES. SOCIAL HISTORY: She used to smoke. No alcohol abuse. FAMILY HISTORY: Noncontributory. REVIEW OF SYSTEMS: Normally, she is up, around and active. No DVT, pulmonary embolus. No seizure or stroke. PHYSICAL EXAMINATION: GENERAL: Elderly female, anxious, in no acute distress. Her daughter is at the bedside. VITAL SIGNS: Blood pressure 99/60, heart rate 90, respirations 22, temperature 97.9. HEENT: Pupils are equal and reactive to light. Oral mucosa and nasal mucosa normal. NECK: Supple. JVP not raised. CHEST: She has expiratory rhonchi. HEART: S1, S2 normal. ABDOMEN: Benign. EXTREMITIES: No edema. IMPRESSION: 1. Chronic obstructive pulmonary disease with mild exacerbation. 2. Bronchitis. 3. Non-ST elevation myocardial infarction. 4. Anxiety disorder. PLAN: Discussed with the patient and her daughter, will give her Solu-Medrol 40 mg every 6 hours, aerosol, albuterol and Atrovent, supplemental oxygen, Xanax as needed, continue Zithromax. Further treatment will depend on the course in the hospital. Thank you, for this consultation. MD MARGUERITE Martin/le/maryann , 07:26 PM , 07:35 PM [facility]
[2018-06-19] MEDS: MethylPREDNISolone Sod Succinate Inj 40 MG/ML Vial IV.PUSH SCH ×4 (02:42→21:02)
[2018-06-19 06:27] LABS: Hematocrit 45.5 % (35.0-46.0); Hemoglobin 15.4 gm/dL (11.6-15.3); Mean Corpuscular HGB Conc 33.8 % (32.0-36.0); Mean Corpuscular Volume 88.7 fL (80.0-100.0); Mean Platelet Volume 8.5 fL (7.0-11.0); Platelet Count 228 th/mm3 (150-450); Red Blood Count 5.13 mil/mm3 (4.00-5.30); Red Cell Distribution Width 13.3 % (11.6-17.2); White Blood Count 12.6 th/mm3 (4.0-11.0)
[2018-06-19 07:10] LABS: Calcium 8.5 mg/dL (8.5-10.1); Carbon Dioxide 26.8 meq/L (21.0-32.0); Magnesium 2.5 mg/dL (1.5-2.5)
[2018-06-19] MEDS: Lisinopril 5 MG Tablet PO SCH (08:18)
[2018-06-19] MEDS ORDERED: Azithromycin 250 MG Tablet PO SCH (09:00)
[2018-06-19] MEDS ORDERED: predniSONE 20 MG Tablet PO SCH (09:00)
--- NOTE | 2018-06-19 09:05 | P.PNCA ---
Subjective Interval history: Pt feeling much better, but still on O2 Medications and Allergies Active Medications: Active Medications Acetaminophen (Tylenol) 650 mg PO Q4H PRN PRN Reason: Temp > 100.4 Albuterol (Duoneb Neb (Prn)) 1 ampul NEB Q4HR NEB PRN PRN Reason: DYSPNEA Last Admin: 06/19/18 08:30 Dose: 1 ampul Alprazolam (Xanax) 0.25 mg PO Q6H PRN PRN Reason: Anxiety Last Admin: 06/18/18 20:32 Dose: 0.25 mg Aspirin (Aspirin Chew) 81 mg PO DAILY [facility] Last Admin: 06/19/18 08:18 Dose: 81 mg Azithromycin (Zithromax) 250 mg PO DAILY [facility] Last Admin: 06/19/18 08:18 Dose: 250 mg Carvedilol (Coreg) 3.125 mg PO BID [facility] Last Admin: 06/19/18 08:18 Dose: 3.125 mg Diphenhydramine HCl (Benadryl) 25 mg PO Q6H PRN PRN Reason: ITCHING/SWELLING Last Admin: 06/18/18 11:37 Dose: 25 mg Fluticasone/Vilanterol (Breo Ellipta 200/25 Mcg Inh) 1 puff INH DAILY [facility] Last Admin: 06/19/18 08:17 Dose: 1 puff Furosemide (Lasix Inj) 20 mg IV.PUSH BID@0900,1800 [facility] Last Admin: 06/19/18 08:18 Dose: 20 mg Lisinopril (Prinivil) 2.5 mg PO DAILY [facility] Last Admin: 06/19/18 08:18 Dose: 2.5 mg Methylprednisolone Sodium Succinate (Solumedrol Inj) 40 mg IV.PUSH Q6H [facility] Last Admin: 06/19/18 08:17 Dose: 40 mg Ondansetron HCl (Zofran Inj) 4 mg IV.PUSH Q6H PRN PRN Reason: NAUSEA OR VOMITING Ondansetron HCl (Zofran Inj) 4 mg IV.PUSH Q6H PRN PRN Reason: NAUSEA OR VOMITING Sodium Chloride (Ns Flush) 2 ml IV.FLUSH BID [facility] Last Admin: 06/19/18 08:18 Dose: 2 ml Sodium Chloride (Ns Flush) 2 ml IV.FLUSH PRN PRN PRN Reason: FLUSH AFTER USING IV ACCESS Last Admin: 06/16/18 23:45 Dose: 2 ml Allergies Allergy/AdvReac Type Severity Reaction Status Date / Time No Known Allergies Allergy Verified 06/16/18 19:22 Home Medications Medication Instructions Recorded Confirmed Type albuterol sulfate [Ventolin HFA] 2 puff INHALATION Q4-6H PRN 06/16/18 06/16/18 History clarithromycin 250 mg PO BID 06/16/18 06/16/18 History prednisone 10 mg PO DAILY 06/16/18 06/16/18 History fluticasone-vilanterol [Breo 1 inh INHALATION DAILY 06/17/18 06/17/18 History Ellipta] alprazolam [Xanax] PO Q4-6H PRN 06/18/18 History Physical Exam Vital signs: Vital Signs 06/18/18 10:00 06/18/18 11:00 06/18/18 11:17 Temperature 98.2 F Pulse Rate 95 H 94 H 95 H Respiratory Rate 20 Blood Pressure 104/73 Pulse Oximetry 96 06/18/18 11:42 06/18/18 12:00 06/18/18 13:00 Temperature Pulse Rate 95 H 92 H 96 H Respiratory Rate 16 Blood Pressure Pulse Oximetry 06/18/18 14:00 06/18/18 15:00 06/18/18 15:11 Temperature 97.9 F Pulse Rate 93 H 92 H 92 H Respiratory Rate 22 Blood Pressure 99/63 L Pulse Oximetry 92 L 06/18/18 15:50 06/18/18 16:00 06/18/18 17:00 Temperature Pulse Rate 92 H 86 83 Respiratory Rate 16 Blood Pressure Pulse Oximetry 06/18/18 18:00 06/18/18 19:00 06/18/18 19:48 Temperature Pulse Rate 90 100 H 94 H Respiratory Rate 18 Blood Pressure Pulse Oximetry 92 L 06/18/18 20:00 06/18/18 21:00 06/18/18 22:00 Temperature 97.9 F Pulse Rate 93 H 90 86 Respiratory Rate 16 Blood Pressure 105/65 Pulse Oximetry 93 L 06/18/18 23:00 06/18/18 23:16 06/19/18 00:00 Temperature 97.9 F Pulse Rate 78 69 76 Respiratory Rate 18 16 Blood Pressure 83/59 L Pulse Oximetry 91 L 06/19/18 01:00 06/19/18 02:00 06/19/18 03:00 Temperature Pulse Rate 76 74 73 Respiratory Rate Blood Pressure Pulse Oximetry 06/19/18 03:01 06/19/18 03:30 06/19/18 04:00 Temperature 97.1 F L Pulse Rate 75 71 74 Respiratory Rate 16 16 Blood Pressure 90/67 L Pulse Oximetry 95 06/19/18 05:00 06/19/18 06:00 06/19/18 07:00 Temperature Pulse Rate 72 75 75 Respiratory Rate Blood Pressure Pulse Oximetry 06/19/18 08:00 06/19/18 08:33 Temperature 97.4 F L Pulse Rate 77 75 Respiratory Rate 18 16 Blood Pressure 124/65 Pulse Oximetry 94 L 95 Intake & Output 06/18/18 06/19/18 06/19/18 18:59 06:59 18:59 Intake Total 720 / 720 480 / 480 Output Total 1400 / 1400 825 / 825 Balance -680 / -680 -345 / -345 Weight 73.9 kg Intake: Oral 720 / 720 480 / 480 Output: Urine 1400 / 1400 825 / 825 Other: Date of Last Bowel Movement 06/17/17 06/17/18 06/17/17 # Bowel Movements 0 0 - Constitutional no acute distress - Routine HEENT Exam Head: Present: normocephalic Eye: Present: EOMI ENT: Present: mucous membranes moist - Routine Neck Exam Present: supple. Absent: JVD - Routine Respiratory Exam Present: wheezes, distant breath sounds - Routine Cardiovascular Exam Present: RRR - Routine Extremities Exam Absent: edema Results 06/19/18 04:33 06/19/18 04:33 Coagulation 06/17/18 Range/Units 09:26 APTT 49.5 H (23.4-31.7) sec CBC 06/18/18 06/19/18 Range/Units 03:21 04:33 WBC 12.6 H (4.0-11.0) th/mm3 RBC 5.13 (4.00-5.30) mil/mm3 Hgb 15.4 H 15.4 H (11.6-15.3) gm/dL Hct 46.1 H 45.5 (35.0-46.0) % Plt Count 228 (150-450) th/mm3 Comprehensive Metabolic Panel 06/18/18 06/19/18 Range/Units 03:21 04:33 Sodium 138 136 (136-145) meq/L Potassium 4.3 4.0 (3.5-5.1) meq/L Chloride 104 101 (98-107) meq/L Carbon Dioxide 27.7 26.8 (21.0-32.0) meq/L BUN 25 H 43 H (7-18) mg/dL Creatinine 0.77 1.10 H (0.50-1.00) mg/dL Calcium 8.1 L 8.5 (8.5-10.1) mg/dL Intake and Output 06/18/18 06/19/18 06/19/18 22:59 06:59 14:59 Intake Total 720 / 720 480 / 480 Output Total 1400 / 1400 825 / 825 Balance -680 / -680 -345 / -345 Intake: Oral 720 / 720 480 / 480 Output: Urine 1400 / 1400 825 / 825 Other: Date of Last Bowel Movement 06/17/17 06/17/18 06/17/17 # Bowel Movements 0 0 Weight 73.9 kg Assessment and Plan - Plan 1. Non-ST elevation myocardial infarction, possibly type 2. Cath showing myocardial bridging of LAD Con't medical management 2. Acute systolic heart failure Echo looks like Takotsubo cardiomyopathy Attempt to diurese as possible Believe a large part of her SOB is COPD exacerbation. Will place on Coreg and Lisinopril Will have to watch with borderline hypotension 3. COPD exacerbation Agree with steroids, just need to taper off as soon as possible Increases fluid retention 4. Drug allergy As she woke up with is, more likely IV contrast or Coreg Will see how she does and if worse or not resolving then will need to stop Coreg Doing well, will continue current therapy for now.
--- NOTE | 2018-06-19 10:26 | P.PNIM ---
Subjective Interval history: Follow up for COPD exacerbation, cardiomyopathy, troponin elevation. Patient went to the bathroom and returned to her chair which made her somewhat exhausted. However, she feels her symptoms are improving. Denies any chest pain, fever or chills. Physical Exam Vital signs: Last Vital Signs Temp 97.4 F L 06/19/18 08:00 Pulse 87 06/19/18 10:00 Resp 16 06/19/18 08:33 BP 124/65 06/19/18 08:00 Pulse Ox 95 06/19/18 08:33 Intake & Output 06/17/18 06/18/18 06/19/18 06/20/18 06:59 06:59 06:59 06:59 Intake Total 0 / 0 240 / 240 1200 / 1200 Output Total 950 / 950 625 / 625 2225 / 2225 Balance -950 / -950 -385 / -385 -1025 / -1025 Weight 72 kg 72 kg 73.9 kg Narrative: GENERAL: Alert, NAD. Speaking in full sentences with some difficulty. SKIN: Warm and dry. HEAD: Normocephalic. EYES: No scleral icterus. No injection or drainage. NECK: Supple, trachea midline. No JVD or lymphadenopathy. CARDIOVASCULAR: Regular rate and rhythm without murmurs, gallops, or rubs. RESPIRATORY: Poor air entry, diffuse wheezing noted both anteriorly and posteriorly. GASTROINTESTINAL: Abdomen soft, non-tender, nondistended. MUSCULOSKELETAL: No cyanosis, or edema. BACK: Nontender without obvious deformity. No CVA tenderness. Results Labs CBC & Chem 7: 06/19/18 04:33 06/19/18 04:33 Procedures Procedures: Cardiac catheterization 06/18/2018 1. Non-ST elevation myocardial infarction, possibly type 2.2. Congestive heart failure of unknown type.3. 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 Echocardiogram 06/17/2018 Normal left ventricular size. Wall thickness is measured at the upper limits of normal. The left ventricular systolic function is severely reduced with an estimated ejection fraction in the range of 25-30%. There is regional mid to apical anteroseptal, anterior, and anterolateral hypokinesis. [id number] mitral valve regurgitation. The estimated pulmonary arterial pressure is 22 mmHg. Assessment and Plan Plan Ms. Fleming is a very pleasant 72-year-old female with a history of COPD who was admitted to the hospital on 06/16/2018 due to worsening shortness of breath. Despite using antibiotics and steroid for 5 days prior to this admission, her symptoms progressively became worse. She did not have any chest pain, nausea vomiting or diaphoresis. No significant increase in her cough or fever/chills. ED evaluation indicated elevated troponins subsequently cardiology was consulted. Patient underwent cardiac catheterization which showed no significant blockage. Myocardial bridging involving LAD was noted. Echocardiogram shows significant cardiomyopathy with ejection fraction 25-30%. Acute hypoxic respiratory failure Acute COPD exacerbation Patient has already taken 5-day course of clarithromycin as well as a steroid. We will DC azithromycin and start Levaquin 750 mg p.o. daily Switch albuterol nebulizer treatment to DuoNeb neb laser treatment scheduled and as needed. Supplemental oxygen to keep O2 saturation Above 90%. Appreciate pulmonology input. Severe cardiomyopathy Etiology unknown. Patient does not have any history of coronary artery disease. Although Takotsubo syndrome is a possibility, but no recent emotional distress. Will likely need repeat echocardiogram in the outpatient setting. Continue carvedilol 3.125 mg twice daily, lisinopril 2.5 mg daily. Patient does not appear to be in volume overload. Acute kidney injury Likely due to diuretics use. Patient is currently on Lasix 20 mg IV twice daily. Acute kidney injury is likely due to over diuresis. Discussed with Salesforce Business Analyst, Dr. Mays. Will switch IV lasix to torsemide PO 10 mg daily. Elevated troponins With no chest pain this likely is due to COPD exacerbation. Continue aspirin 81 mg along with beta-deanne and SEA inhibitor. Full code. Start Lovenox 40 mg daily for DVT prophylaxis. Progress Note: Quality VTE Deep Vein Thrombosis/Pulmonary Embolism Present on Admission: No
[2018-06-19] MEDS: Enoxaparin Inj 40 MG/0.4 ML Syringe SQ SCH (14:54)
[2018-06-19] MEDS: levoFLOXacin 750 MG Tablet PO SCH (14:55)
--- NOTE | 2018-06-19 17:10 | P.PNPL ---
Subjective Interval history: 72 YOWF with COPD exac, NSTMI Denies CP Mild sob, worse on ambulation Still has wheezing, little better Physical Exam Vital signs: Vital Signs 06/18/18 18:00 06/18/18 19:00 06/18/18 19:48 Temperature Pulse Rate 90 100 H 94 H Respiratory Rate 18 Blood Pressure Pulse Oximetry 92 L 06/18/18 20:00 06/18/18 21:00 06/18/18 22:00 Temperature 97.9 F Pulse Rate 93 H 90 86 Respiratory Rate 16 Blood Pressure 105/65 Pulse Oximetry 93 L 06/18/18 23:00 06/18/18 23:16 06/19/18 00:00 Temperature 97.9 F Pulse Rate 78 69 76 Respiratory Rate 18 16 Blood Pressure 83/59 L Pulse Oximetry 91 L 06/19/18 01:00 06/19/18 02:00 06/19/18 03:00 Temperature Pulse Rate 76 74 73 Respiratory Rate Blood Pressure Pulse Oximetry 06/19/18 03:01 06/19/18 03:30 06/19/18 04:00 Temperature 97.1 F L Pulse Rate 75 71 74 Respiratory Rate 16 16 Blood Pressure 90/67 L Pulse Oximetry 95 06/19/18 05:00 06/19/18 06:00 06/19/18 07:00 Temperature Pulse Rate 72 75 75 Respiratory Rate Blood Pressure Pulse Oximetry 06/19/18 08:00 06/19/18 08:33 06/19/18 09:00 Temperature 97.4 F L Pulse Rate 80 75 90 Respiratory Rate 18 16 Blood Pressure 124/65 Pulse Oximetry 94 L 95 06/19/18 10:00 06/19/18 11:00 06/19/18 12:00 Temperature 97.5 F L Pulse Rate 87 77 80 Respiratory Rate 18 Blood Pressure 108/68 Pulse Oximetry 96 06/19/18 13:00 06/19/18 14:00 06/19/18 14:13 Temperature Pulse Rate 82 82 81 Respiratory Rate 16 Blood Pressure Pulse Oximetry 06/19/18 15:00 06/19/18 16:00 Temperature 97.7 F Pulse Rate 79 76 Respiratory Rate 18 Blood Pressure 94/60 L Pulse Oximetry 97 Intake & Output 06/18/18 06/19/18 06/19/18 18:59 06:59 18:59 Intake Total 720 / 720 480 / 480 Output Total 1400 / 1400 825 / 825 Balance -680 / -680 -345 / -345 Weight 73.9 kg Intake: Oral 720 / 720 480 / 480 Output: Urine 1400 / 1400 825 / 825 Other: Date of Last Bowel Movement 06/17/17 06/17/18 06/17/17 # Bowel Movements 0 0 GENERAL: End exp rhonchi SKIN: Warm and dry. HEAD: Normocephalic. EYES: No scleral icterus. No injection or drainage. NECK: Supple, trachea midline. No JVD or lymphadenopathy. CARDIOVASCULAR: Regular rate and rhythm without murmurs, gallops, or rubs. RESPIRATORY: Breath sounds equal bilaterally. No accessory muscle use. GASTROINTESTINAL: Abdomen soft, non-tender, nondistended. MUSCULOSKELETAL: No cyanosis, or edema. BACK: Nontender without obvious deformity. No CVA tenderness. Assessment and Plan - Plan IMPRESSION: 1. Chronic obstructive pulmonary disease with mild exacerbation. 2. Bronchitis. 3. Non-ST elevation myocardial infarction. 4. Anxiety disorder. PLAN: IV Solumedrol 40 mg q 6 hrs Aerosol nebs Supplement 02 Breo Ellipta once a day Cont Abx
[2018-06-20] MEDS: MethylPREDNISolone Sod Succinate Inj 40 MG/ML Vial IV.PUSH SCH ×2 (01:47→09:58)
[2018-06-20] MEDS: ALPRAZolam 0.5 MG Tablet PO PRN (01:47)
[2018-06-20 04:15] LABS: Calcium 8.3 mg/dL (8.5-10.1); Carbon Dioxide 28.6 meq/L (21.0-32.0); Potassium 4.4 meq/L (3.5-5.1)
[2018-06-20] MEDS ORDERED: Dextrose 50% in Water 50 ML Vial IV.PUSH PRN (07:46)
--- NOTE | 2018-06-20 08:48 | P.PNCA ---
Subjective Interval history: Pt doing well, no complaints. Medications and Allergies Active Medications: Active Medications Acetaminophen (Tylenol) 650 mg PO Q4H PRN PRN Reason: Temp > 100.4 Albuterol (Duoneb Neb (Prn)) 1 ampul NEB Q4HR NEB PRN PRN Reason: DYSPNEA Last Admin: 06/20/18 03:40 Dose: 1 ampul Albuterol (Duoneb Neb (Sherry)) 1 ampul NEB Q6HR WHILE AWAKE NEB [facility] Last Admin: 06/19/18 20:18 Dose: 1 ampul Alprazolam (Xanax) 0.25 mg PO Q6H PRN PRN Reason: Anxiety Last Admin: 06/20/18 01:47 Dose: 0.25 mg Aspirin (Aspirin Chew) 81 mg PO DAILY [facility] Last Admin: 06/19/18 08:18 Dose: 81 mg Carvedilol (Coreg) 3.125 mg PO BID [facility] Last Admin: 06/19/18 21:02 Dose: 3.125 mg Dextrose (D50w Vial) 50 ml IV.PUSH UNSCH PRN PRN Reason: PER HYPOGLYCEMIA PROTOCOL Diphenhydramine HCl (Benadryl) 25 mg PO Q6H PRN PRN Reason: ITCHING/SWELLING Last Admin: 06/18/18 11:37 Dose: 25 mg Enoxaparin Sodium (Lovenox Inj) 40 mg SQ DAILY [facility] Last Admin: 06/19/18 14:54 Dose: 40 mg Fluticasone/Vilanterol (Breo Ellipta 200/25 Mcg Inh) 1 puff INH DAILY [facility] Last Admin: 06/19/18 08:17 Dose: 1 puff Glucagon (Glucagon Inj) 1 mg OTHER PRN PRN PRN Reason: for Hypoglycemia Protocol Insulin Aspart (Novolog Insulin Correctional Sugar Inj) 0 unit SQ [facility]; Protocol Levofloxacin (Levaquin) 750 mg PO Q24H [facility] Last Admin: 06/19/18 14:55 Dose: 750 mg Lisinopril (Prinivil) 2.5 mg PO DAILY [facility] Last Admin: 06/19/18 08:18 Dose: 2.5 mg Methylprednisolone Sodium Succinate (Solumedrol Inj) 40 mg IV.PUSH Q6H [facility] Last Admin: 06/20/18 01:47 Dose: 40 mg Ondansetron HCl (Zofran Inj) 4 mg IV.PUSH Q6H PRN PRN Reason: NAUSEA OR VOMITING Ondansetron HCl (Zofran Inj) 4 mg IV.PUSH Q6H PRN PRN Reason: NAUSEA OR VOMITING Sodium Chloride (Ns Flush) 2 ml IV.FLUSH BID [facility] Last Admin: 06/19/18 21:03 Dose: 2 ml Sodium Chloride (Ns Flush) 2 ml IV.FLUSH PRN PRN PRN Reason: FLUSH AFTER USING IV ACCESS Last Admin: 06/16/18 23:45 Dose: 2 ml Torsemide (Demadex) 10 mg PO DAILY [facility] Allergies Allergy/AdvReac Type Severity Reaction Status Date / Time No Known Allergies Allergy Verified 06/16/18 19:22 Home Medications Medication Instructions Recorded Confirmed Type albuterol sulfate [Ventolin HFA] 2 puff INHALATION Q4-6H PRN 06/16/18 06/16/18 History clarithromycin 250 mg PO BID 06/16/18 06/16/18 History prednisone 10 mg PO DAILY 06/16/18 06/16/18 History fluticasone-vilanterol [Breo 1 inh INHALATION DAILY 06/17/18 06/17/18 History Ellipta] alprazolam [Xanax] PO Q4-6H PRN 06/18/18 History Physical Exam Vital signs: Vital Signs 06/19/18 09:00 06/19/18 10:00 06/19/18 11:00 Temperature Pulse Rate 90 87 77 Respiratory Rate Blood Pressure Pulse Oximetry 06/19/18 12:00 06/19/18 13:00 06/19/18 14:00 Temperature 97.5 F L Pulse Rate 80 82 82 Respiratory Rate 18 Blood Pressure 108/68 Pulse Oximetry 96 06/19/18 14:13 06/19/18 15:00 06/19/18 16:00 Temperature 97.7 F Pulse Rate 81 79 76 Respiratory Rate 16 18 Blood Pressure 94/60 L Pulse Oximetry 97 06/19/18 17:00 06/19/18 18:00 06/19/18 19:00 Temperature Pulse Rate 84 91 H 102 H Respiratory Rate Blood Pressure Pulse Oximetry 06/19/18 20:00 06/19/18 20:23 06/19/18 20:35 Temperature 97.4 F L Pulse Rate 90 89 Respiratory Rate 16 20 Blood Pressure 107/66 Pulse Oximetry 93 L 97 06/19/18 21:00 06/19/18 22:00 06/19/18 23:00 Temperature Pulse Rate 86 76 69 Respiratory Rate Blood Pressure Pulse Oximetry 06/20/18 00:00 06/20/18 01:00 06/20/18 02:00 Temperature 97.3 F L Pulse Rate 70 72 66 Respiratory Rate 16 Blood Pressure 107/66 Pulse Oximetry 98 06/20/18 03:00 06/20/18 03:40 06/20/18 04:00 Temperature Pulse Rate 69 64 68 Respiratory Rate 22 Blood Pressure Pulse Oximetry 06/20/18 05:00 06/20/18 06:00 Temperature Pulse Rate 66 64 Respiratory Rate Blood Pressure Pulse Oximetry Intake & Output 06/19/18 06/20/18 06/20/18 18:59 06:59 18:59 Intake Total 720 / 720 480 / 480 Output Total 1000 / 1000 625 / 625 Balance -280 / -280 -145 / -145 Weight 74 kg Intake: Oral 720 / 720 480 / 480 Output: Urine 1000 / 1000 625 / 625 Other: Date of Last Bowel Movement 06/17/17 06/17/17 - Constitutional no acute distress - Routine HEENT Exam Head: Present: normocephalic Eye: Present: EOMI ENT: Present: mucous membranes moist - Routine Neck Exam Absent: JVD - Routine Respiratory Exam Present: decreased breath sounds, CTA bilaterally - Routine Cardiovascular Exam Present: RRR. Absent: murmur - Routine Abdominal Exam Present: soft Results 06/19/18 04:33 06/20/18 03:24 CBC 06/19/18 Range/Units 04:33 WBC 12.6 H (4.0-11.0) th/mm3 RBC 5.13 (4.00-5.30) mil/mm3 Hgb 15.4 H (11.6-15.3) gm/dL Hct 45.5 (35.0-46.0) % Plt Count 228 (150-450) th/mm3 Comprehensive Metabolic Panel 06/19/18 06/20/18 Range/Units 04:33 03:24 Sodium 136 138 (136-145) meq/L Potassium 4.0 4.4 (3.5-5.1) meq/L Chloride 101 102 (98-107) meq/L Carbon Dioxide 26.8 28.6 (21.0-32.0) meq/L BUN 43 H 42 H (7-18) mg/dL Creatinine 1.10 H 0.94 (0.50-1.00) mg/dL Calcium 8.5 8.3 L (8.5-10.1) mg/dL Intake and Output 06/19/18 06/20/18 06/20/18 22:59 06:59 14:59 Intake Total 720 / 720 480 / 480 Output Total 1000 / 1000 625 / 625 Balance -280 / -280 -145 / -145 Intake: Oral 720 / 720 480 / 480 Output: Urine 1000 / 1000 625 / 625 Other: Date of Last Bowel Movement 06/17/17 06/17/17 Weight 74 kg Assessment and Plan - Plan 1. Non-ST elevation myocardial infarction, possibly type 2. Cath showing myocardial bridging of LAD Con't medical management 2. Acute systolic heart failure Echo looks like Takotsubo cardiomyopathy; ef 25-35%; on bb/kasandra (could consider change to entresto as outpt), I did offer life-vest, she declined Compensated chf. Believe a large part of her SOB is COPD exacerbation. Will place on Coreg and Lisinopril Will have to watch with borderline hypotension 3. COPD exacerbation Agree with steroids, just need to taper off as soon as possible Increases fluid retention 4. Drug allergy As she woke up with is, more likely IV contrast or Coreg Will see how she does and if worse or not resolving then will need to stop Coreg Doing well, ok to d/c home from cardiac standpoint to f/u with Dr. Solares in 1 -2 weeks.
--- NOTE | 2018-06-20 09:38 | P.PNIM ---
Subjective Interval history: Follow up for COPD exacerbation, cardiomyopathy, troponin elevation. Patient is currently doing well. Sitting in her chair, on supplemental oxygen via nasal cannula. Speaking better in full sentences today. No chest pain, fever or chills. She wants to get up and walk today and see how she feels. Physical Exam Vital signs: Last Vital Signs Temp 98.1 F 06/20/18 08:00 Pulse 88 06/20/18 08:43 Resp 16 06/20/18 08:43 BP 121/58 L 06/20/18 08:00 Pulse Ox 94 L 06/20/18 08:43 Intake & Output 06/18/18 06/19/18 06/20/18 06/21/18 06:59 06:59 06:59 06:59 Intake Total 240 / 240 1200 / 1200 1200 / 1200 Output Total 625 / 625 2225 / 2225 1625 / 1625 Balance -385 / -385 -1025 / -1025 -425 / -425 Weight 72 kg 73.9 kg 74 kg Narrative: GENERAL: Alert, NAD. Speaking in full sentences. SKIN: Warm and dry. HEAD: Normocephalic. EYES: No scleral icterus. No injection or drainage. NECK: Supple, trachea midline. No JVD or lymphadenopathy. CARDIOVASCULAR: Regular rate and rhythm without murmurs, gallops, or rubs. RESPIRATORY: Moderate air entry, diffuse wheezing noted both anteriorly and posteriorly. GASTROINTESTINAL: Abdomen soft, non-tender, nondistended. MUSCULOSKELETAL: No cyanosis, or edema. BACK: Nontender without obvious deformity. No CVA tenderness. Results Labs CBC & Chem 7: 06/19/18 04:33 06/20/18 03:24 Procedures Procedures: Cardiac catheterization 06/18/2018 1. Non-ST elevation myocardial infarction, possibly type 2.2. Congestive heart failure of unknown type.3. 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 Echocardiogram 06/17/2018 Normal left ventricular size. Wall thickness is measured at the upper limits of normal. The left ventricular systolic function is severely reduced with an estimated ejection fraction in the range of 25-30%. There is regional mid to apical anteroseptal, anterior, and anterolateral hypokinesis. Stpoi-[id number] mitral valve regurgitation. The estimated pulmonary arterial pressure is 22 mmHg. Assessment and Plan Plan Ms. Fleming is a very pleasant 72-year-old female with a history of COPD who was admitted to the hospital on 06/16/2018 due to worsening shortness of breath. Despite using antibiotics and steroid for 5 days prior to this admission, her symptoms progressively became worse. She did not have any chest pain, nausea vomiting or diaphoresis. No significant increase in her cough or fever/chills. ED evaluation indicated elevated troponins subsequently cardiology was consulted. Patient underwent cardiac catheterization which showed no significant blockage. Myocardial bridging involving LAD was noted. Echocardiogram shows significant cardiomyopathy with ejection fraction 25-30%. Acute hypoxic respiratory failure Acute COPD exacerbation Patient has already taken 5-day course of clarithromycin as well as a steroid. We will continue Levaquin 750 mg p.o. daily DuoNeb neb laser treatment scheduled and as needed. Supplemental oxygen to keep O2 saturation Above 90%. Appreciate pulmonology input. Severe cardiomyopathy Etiology unknown. Patient does not have any history of coronary artery disease. Although Takotsubo syndrome is a possibility, but no recent emotional distress. Will likely need repeat echocardiogram in the outpatient setting. Continue carvedilol 3.125 mg twice daily, lisinopril 2.5 mg daily. Patient does not appear to be in volume overload. Acute kidney injury Likely due to diuretics use. Acute kidney injury is likely due to over diuresis. Creatinine is 1.10 --> 0.94 today. Torsemide PO 10 mg daily. Elevated troponins With no chest pain this likely is due to COPD exacerbation. Continue aspirin 81 mg along with beta-deanne and SEA inhibitor. Full code. Lovenox 40 mg daily for DVT prophylaxis. Discharge plan: Discussed with Cardiology - okay to discharge home. Will wait for patient to ambulate more today and also will discuss with pulm. Possible discharge today/tomorrow. Patient has home O2. Progress Note: Quality VTE Deep Vein Thrombosis/Pulmonary Embolism Present on Admission: No
[2018-06-20] MEDS: Insulin NovoLOG Aspart Correctional Sugar Inj SQ SCH ×2 (09:58→13:10)
[2018-06-20] MEDS: Enoxaparin Inj 40 MG/0.4 ML Syringe SQ SCH (09:58)
[2018-06-20] MEDS: Lisinopril 5 MG Tablet PO SCH (09:59)
[2018-06-20] MEDS: levoFLOXacin 750 MG Tablet PO SCH (13:10)
[2018-06-20 13:41] VITALS: BP 103/72; TEMP 97.8; O2SAT 93
[2018-06-20 14:55] VITALS: RESP 20
[2018-06-20 15:22] VITALS: PULSE 102
--- NOTE | 2018-06-20 15:45 | P.DS ---
DS: Providers Date of admission: 06/16/18 22:20 Primary care physician: Kirk Parker MD Consults: 06/16/18 22:20 Consult to Cardiology Routine Consulting Provider: Tex Whyte Does the patient have a Training And Development Officer who follows them?: No Preferred Patient Account Representative:: Stonemason Physician Reason for Consultation: nonstemi; discussed with Dr Whyte Notified:: Service Spoke with:: Olesya Date Notified:: 06/16/18 Time Notified:: 22:41 Ordering Provider: GULSHAN 06/17/18 16:54 HUB Only Consult Order Routine Consulting Provider: Jessica Lopez 06/18/18 12:26 Consult to Pulmonology Routine Consulting Provider: Dagoberto Wakefield Reason for Consultation: worsening SOB with COPD. Notified:: Service Spoke with:: GIOVANI Date Notified:: 06/18/18 Time Notified:: 12:32 Ordering Provider: CHRISTIAN Brief History from admission: 72-year-old female with a history of COPD presented to the ED with complaints of increasing shortness of breath. Patient states she has been on antibiotics and steroids for the last 5 days because she thought she was having a COPD exacerbation but she continued to have increasing shortness of breath and associated dizziness and chest pressure. She denies any radiating chest pain, nausea, vomiting, diaphoresis, fever, chills or dysuria. DS: Summary Ms. Fleming is a very pleasant 72-year-old female with a history of COPD who was admitted to the hospital on 06/16/2018 due to worsening shortness of breath. Despite using antibiotics and steroid for 5 days prior to this admission, her symptoms progressively became worse. She did not have any chest pain, nausea vomiting or diaphoresis. No significant increase in her cough or fever/chills. ED evaluation indicated elevated troponins subsequently cardiology was consulted. Patient underwent cardiac catheterization which showed no significant blockage. Myocardial bridging involving LAD was noted. Echocardiogram shows significant cardiomyopathy with ejection fraction 25-30%. Acute hypoxic respiratory failure Acute COPD exacerbation Patient has already taken 5-day course of clarithromycin as well as a steroid. We will continue Levaquin 750 mg p.o. daily DuoNeb neb laser treatment scheduled and as needed. Supplemental oxygen to keep O2 saturation Above 90%. Appreciate pulmonology input. Severe cardiomyopathy Etiology unknown. Patient does not have any history of coronary artery disease. Although Takotsubo syndrome is a possibility, but no recent emotional distress. Will likely need repeat echocardiogram in the outpatient setting. Continue carvedilol 3.125 mg twice daily, lisinopril 2.5 mg daily. Patient does not appear to be in volume overload. Acute kidney injury Likely due to diuretics use. Acute kidney injury is likely due to over diuresis. Creatinine is 1.10 --> 0.94 today. Torsemide PO 10 mg daily. Elevated troponins With no chest pain this likely is due to COPD exacerbation. Continue aspirin 81 mg along with beta-deanne and SEA inhibitor. Oral thrush -Continue Nystatin. Full code. Lovenox 40 mg daily for DVT prophylaxis. Overall, patient is doing well. Walked with RN without much difficulty. Has home O2. Cardiology and Pulm cleared for discharge. Patient is being discharged home with follow up with PCP, Pulm and Cardiology. Time Spent with Patient Total time spent providing and/or coordinating discharge services: Greater than 30 minutes Quality: VTE Deep Vein Thrombosis/Pulmonary Embolism Present on Admission: No Exam Narrative Exam Narrative: GENERAL: Alert, NAD. Speaking in full sentences. SKIN: Warm and dry. HEAD: Normocephalic. EYES: No scleral icterus. No injection or drainage. NECK: Supple, trachea midline. No JVD or lymphadenopathy. CARDIOVASCULAR: Regular rate and rhythm without murmurs, gallops, or rubs. RESPIRATORY: Moderate air entry, diffuse wheezing noted both anteriorly and posteriorly. GASTROINTESTINAL: Abdomen soft, non-tender, nondistended. MUSCULOSKELETAL: No cyanosis, or edema. BACK: Nontender without obvious deformity. No CVA tenderness. Results Procedures completed during hospitalization: Cardiac catheterization 06/18/2018 1. Non-ST elevation myocardial infarction, possibly type 2.2. Congestive heart failure of unknown type.3. 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 Echocardiogram 06/17/2018 Normal left ventricular size. Wall thickness is measured at the upper limits of normal. The left ventricular systolic function is severely reduced with an estimated ejection fraction in the range of 25-30%. There is regional mid to apical anteroseptal, anterior, and anterolateral hypokinesis. [id number] mitral valve regurgitation. The estimated pulmonary arterial pressure is 22 mmHg. Labs on day of discharge: Labs from last 24 hours 06/20/18 06/20/18 06/20/18 12:42 09:50 03:24 Sodium 138 Potassium 4.4 Chloride 102 Carbon Dioxide 28.6 Anion Gap 7 BUN 42 H Creatinine 0.94 Estimated GFR 58 L POC Glucose 181 H 197 H Random Glucose 175 H Calcium 8.3 L Impressions ITS Impressions Chest X-Ray 06/16/18 19:42 CONCLUSION: 1. Underlying emphysema and mild scarring. 2. No evidence of pneumonia. 3. Bochdalek type hernia noted seen on the prior CT containing omental fat. Discharge Plan Discharge Disposition Patient Disposition: Discharge Home Discharge Condition Condition: Good Discharge Order Discharge Orders: Discharge Order (Routine); Ordered 06/20/18 Ordered By: Meagan Cardenas Discharge Details Anticipated Discharge Date: 06/20/18 Physicians Team Primary Care Provider: Kirk Parker Attending Provider: Meagan Cardenas Other Providers: Tex Whyte ; Jessica Lopez ; Dagoberto Wakefield Rxs /Orders / Referrals /Forms Prescriptions: New nystatin 100,000 unit/mL Suspension 5 ml SWISH-SWAL QID 14 Days Qty: 280 RF: 0 prednisone 10 mg Tablet 10 mg PO TID Qty: 15 RF: 0 carvedilol [Coreg] 3.125 mg Tablet 3.125 mg PO BID Qty: 60 RF: 3 torsemide 5 mg Tablet 10 mg PO DAILY Qty: 30 RF: 3 aspirin 81 mg Tablet,Chewable 81 mg PO DAILY Qty: 30 RF: 3 lisinopril 5 mg Tablet 2.5 mg PO DAILY Qty: 30 RF: 3 levofloxacin 750 mg Tablet 750 mg PO Q24H Qty: 5 RF: 0 fluticasone-vilanterol [Breo Ellipta] 200-25 mcg/dose Blister With Device 1 inh Inhalation DAILY 30 Days Qty: 60 RF: 3 Continue albuterol sulfate [Ventolin HFA] 90 mcg/actuation Hfa Aerosol Inhaler 2 puff INHALATION Q4-6H PRN (Reason: Shortness Of Breath) RF: 0 fluticasone-vilanterol [Breo Ellipta] 200-25 mcg/dose Blister With Device 1 inh INHALATION DAILY RF: 0 alprazolam [Xanax] 0.5 mg Tablet PO Q4-6H PRN (Reason: Anxiety) RF: 0 Discontinued prednisone 10 mg Tablet 10 mg PO DAILY RF: 0 clarithromycin 250 mg Tablet 250 mg PO BID RF: 0 Referrals: Dagoberto Wakefield MD [Physician] - See Instructions (Within 1-2 weeks. ) Kirk Parker MD [Primary Care Provider] - See Instructions (Within 1-2 weeks. ) Tex Whyte MD [Physician] - See Instructions (Within 1-2 weeks. ) Discharge Interventions Interventions: Discharge Planning - Case Management Last Done: 06/17/18 11:58 Status ED Status: Left Department
--- NOTE | 2018-06-20 17:19 | P.PNPL ---
Subjective Interval history: 72 YOWF with COPD exac, NSTMI Denies CP Mild sob, worse on ambulation Still has wheezing, little better Has sore throat, difficulty swallowing. Physical Exam Vital signs: Vital Signs 06/19/18 18:00 06/19/18 19:00 06/19/18 20:00 Temperature 97.4 F L Pulse Rate 91 H 102 H 90 Respiratory Rate 16 Blood Pressure 107/66 Pulse Oximetry 93 L 06/19/18 20:23 06/19/18 20:35 06/19/18 21:00 Temperature Pulse Rate 89 86 Respiratory Rate 20 Blood Pressure Pulse Oximetry 97 06/19/18 22:00 06/19/18 23:00 06/20/18 00:00 Temperature 97.3 F L Pulse Rate 76 69 70 Respiratory Rate 16 Blood Pressure 107/66 Pulse Oximetry 98 06/20/18 01:00 06/20/18 02:00 06/20/18 03:00 Temperature Pulse Rate 72 66 69 Respiratory Rate Blood Pressure Pulse Oximetry 06/20/18 03:40 06/20/18 04:00 06/20/18 05:00 Temperature Pulse Rate 64 68 66 Respiratory Rate 22 Blood Pressure Pulse Oximetry 06/20/18 06:00 06/20/18 08:00 06/20/18 08:43 Temperature 98.1 F Pulse Rate 64 59 L 88 Respiratory Rate 16 16 Blood Pressure 121/58 L Pulse Oximetry 96 94 L 06/20/18 09:00 06/20/18 10:00 06/20/18 11:00 Temperature Pulse Rate 74 96 H 91 H Respiratory Rate Blood Pressure Pulse Oximetry 06/20/18 12:00 06/20/18 13:00 06/20/18 14:00 Temperature 97.8 F Pulse Rate 93 H 87 92 H Respiratory Rate 16 Blood Pressure 103/72 Pulse Oximetry 93 L 06/20/18 14:54 06/20/18 15:00 Temperature Pulse Rate 97 H 102 H Respiratory Rate 20 Blood Pressure Pulse Oximetry 93 L Intake & Output 06/19/18 06/20/18 06/20/18 18:59 06:59 18:59 Intake Total 720 / 720 480 / 480 Output Total 1000 / 1000 625 / 625 Balance -280 / -280 -145 / -145 Weight 74 kg Intake: Oral 720 / 720 480 / 480 Output: Urine 1000 / 1000 625 / 625 Other: Date of Last Bowel Movement 06/17/17 06/17/17 06/17/18 GENERAL: MBMN NAD SKIN: Warm and dry. HEAD: Normocephalic. EYES: No scleral icterus. No injection or drainage. NECK: Supple, trachea midline. No JVD or lymphadenopathy. Oral thrush CARDIOVASCULAR: Regular rate and rhythm without murmurs, gallops, or rubs. RESPIRATORY: Breath sounds equal bilaterally. No accessory muscle use. GASTROINTESTINAL: Abdomen soft, non-tender, nondistended. MUSCULOSKELETAL: No cyanosis, or edema. BACK: Nontender without obvious deformity. No CVA tenderness. Assessment and Plan - Plan IMPRESSION: 1. Chronic obstructive pulmonary disease with mild exacerbation. 2. Bronchitis. 3. Non-ST elevation myocardial infarction. 4. Anxiety disorder. PLAN: DC Solumedrol Pred 10 mg tid and taper Nystatin S&S Aerosol nebs Supplement 02 Breo Ellipta once a day Cont Abx DC Plans for home Will FU in office
[2018-06-20] MEDS ORDERED: predniSONE 10 MG Tablet PO SCH (18:00)
[2018-06-20] MEDS ORDERED: Nystatin Liq 500,000 UNIT/5 ML UDC SWISH-SWAL SCH (18:00)
== END 2018-06-20 17:36 | disposition home or self-care (01) | DRG 280 ==
LOC: PHED 19:15 → PHEDA 22:20 → HCPC 06-17 00:15 → UNDODISIN 06-20 15:18
PROVIDERS: ADMIT Hospitalist; ATTEND Hospitalist
CPT/HCPCS: 71010; 71045; 80048; 80053; 82948; 82962; 83520; 83735; 83880; 84484; 85014; 85018; 85025; 85027; 85610; 85730; 90774; 90775; 93005; 93306; 93458; 94640; 94664; 94665; 94667; 94668; 96374; 96375; 97162; 99152; 99291; C1769; C1893; C8952; J1644; J1650; J1815; J1940; J2250; J2920; J2930; J3010; J7506; J7512; Q9967